=== PATIENT | male | born 1965 | race African-American/Black ===

== ENCOUNTER 2020-10-09 07:59 | Inpatient (IN) | payer OTHER, SELFPAY ==
[2020-10-09] VITALS (10 sets, daily range): BP systolic 101–120; BP diastolic 64–80; PULSE 70–95; RESP 14–24; TEMP 36.6–37.2; O2SAT 97–99; BMI 24.2
--- NOTE | ~2020-10-09 | CT_ITS ---
EXAMINATION: CT cervical spine wo con EXAM DATE: 10/09/2020 22:53 INDICATION: Neck pain following seizure. TECHNIQUE: Spiral CT of the cervical spine was performed without contrast. Axial images were reviewe d. Coronal and sagittal reformatted images were also reviewed. The dose-length product (DLP) for thi s examination was 422.85 mGy-cm. The exposure was tailored according to patient size (auto mA exposu re control), and iterative reconstruction (ASIR) was used as additional dose reduction technique. ere is no prior study for comparison. FINDINGS: There is no evidence of acute cervical fracture. The odontoid process is intact. Pre-dens space is normal. Prevertebral soft tissue is normal. There are no soft tissue abnormalities identi fied. There is no disc space widening or traumatic vertebral body subluxation suspected. Mild to mo derate cervical spondylosis. A detailed level by level evaluation of spondylosis can be added as add endum if requested. IMPRESSION: 1. No acute cervical fracture. Reviewed, dictated and finalized at location A. NAILER
--- NOTE | ~2020-10-09 | CT_ITS ---
EXAMINATION: CT brain wo con DATE: 10/09/2020 08:59 INDICATION: Possible seizure. Altered mental status. TECHNIQUE: Computed tomography (CT) of the head was performed without intravenous contrast. The mA wa s adjusted according to patient size. Iterative reconstruction technique was employed. Exam dose: 60 5.33 mGy-cm total exam DLP. COMPARISON: 04/24/2019 CT brain FINDINGS: No intracranial mass lesion or hemorrhage or cerebrovascular accident. No midline shift or mass effect. Normal ventricular size. No subdural or epidural hematoma. No fracture or bone destruction of the cranial vault. Included mastoid air cells and paranasal sinuses are normally developed and aerated. IMPRESSION: Negative Reviewed, dictated and finalized at Location A. Reviewed, dictated and finalized at location A. TRANSFER WORKER IMPRESSION: Negative
--- NOTE | ~2020-10-09 | US_ITS ---
EXAMINATION: US carotid duplex BI DATE: 10/10/2020 11:21 INDICATION: Seizure TECHNIQUE: Grayscale, color Doppler, and pulsed Doppler images of the cervical carotid arteries were obtained. The degree of vessel stenosis is placed in one of the following categories: normal, <50%, 5 0-69%, >=70% but less than near-occlusion, near-occlusion, or total occlusion. Note that percent sten osis relative to normal distal artery lumen diameter is indirectly measured from velocity measurement s as described by Benson, et al. Radiology 2003; 229:340-346. Notes: Normal: Peak systolic velocity <125 centimeters/sec and no plaque <50%. Peak systolic velocity <125 ( EDV <40; ICA/CCA PSV ratio <2.0; used these factors only a tandem lesions or low cardiac output or co ntralateral disease) 50-69 %: PSV 125-230 (EDV 40-100; ratio 2-4) >= 70% but less than near occlusion: PSV greater than 230 (EDV > 100; ratio> 4.0) Near Occlusion: PSV that is variable; markedly narrowed lumen Occlusion: Absent flow on color/spectral Doppler and no lumen on mancilla scale. COMPARISON: None. FINDINGS: RIGHT: The right common carotid artery (CCA) peak systolic velocity (PSV) is 87 cm/s. The right internal car otid artery (ICA) PSV is 89 cm/s. The right ICA end-diastolic velocity (EDV) is 37 cm/s. The right IC A/CCA PSV ratio is 1.0. The external carotid artery (ECA) PSV is 92 cm/s. There is antegrade flow in the right vertebral artery. LEFT: The left CCA PSV is 120 cm/s. The left ICA PSV is 82 cm/s. The left ICA EDV is 35 cm/s. The left ICA/ CCA PSV ratio is 0.7. The ECA PSV is 65 cm/s. There is antegrade flow in the left vertebral artery. IMPRESSION: 1. Less than 50% stenosis in the right internal carotid artery by sonographic criteria. 2. Less than 50% stenosis in the left internal carotid artery by sonographic criteria. Reviewed, dictated and finalized at location B. ASSISTANT IMPRESSION: 1. Less than 50% stenosis in the right internal carotid artery by sonographic satish alejo. 2. Less than 50% stenosis in the left internal carotid artery by sonographic hansa miranda.
--- NOTE | ~2020-10-09 | XR_ITS ---
EXAMINATION: XR chest 2V DATE: 10/09/2020 15:25 INDICATION: Chest pain. TECHNIQUE: Frontal and lateral views of the chest were obtained. COMPARISON: Chest single view 03/18/2019, chest CT 04/24/2019 FINDINGS: There are airspace opacities in left lower lobe. No pleural effusion or pneumothorax. The h eart size is normal. IMPRESSION: 1. Airspace opacities in left lower lobe, consistent with atelectasis versus pneumonia. Reviewed, dictated and finalized at location A. ATION MARBLE MECHANIC IMPRESSION: 1. Airspace opacities in left lower lobe, consistent with atelectasis versus pn eumonia.
--- NOTE | ~2020-10-09 | CT_ITS ---
EXAMINATION: CTA BRAIN/CAROTID DATE: 10/10/2020 20:22 INDICATION: Seizures TECHNIQUE: Computed tomographic angiography (CTA) of the head and neck was performed with 100 mL Omni paque-350 intravenous contrast. Multiplanar reconstructions and maximum intensity projection 3D-recon structions of the carotid arteries and of the intracranial arteries were created by the technologist on a separate workstation. Automated exposure control and iterative reconstruction technique were emp loyed.The dose-length product was 1260.37 mGy-cm. COMPARISON: Head CT and brain MR dated 10/09/2020 FINDINGS: Carotid arteries: There is 0% stenosis of the right carotid bulb relative to normal distal artery lumen diameter (NASCE T criteria). There is 0% stenosis of the left carotid bulb relative to normal distal artery lumen vandana meter. Cervical soft tissues are unremarkable. Mild cervical spondylosis. Linear discoid atelectasis in the superior segment of the left lower lobe. There are groundglass opacities in the dependent aspe ct of the left upper lobe and superior segment of the left lower lobe and favor additional atelectasi s over pneumonia. Intracranial arteries There is no hemodynamically significant stenosis in the vertebral, basilar and internal carotid arter ies. Vertebral arteries are codominant. There are no aneurysms identified. Both A1 and P1 segments a re patent. There are also a patent anterior communicating artery and bilateral posterior commuting ar teries. Cerebral arterial arborization appears symmetric. IMPRESSION: 1. 0% stenosis of the left and right carotid bulbs relative to normal distal artery lumen diameter (N ASCET criteria). 2. Normal cerebral angiogram. Reviewed, dictated and finalized at location A. ET LABOR UNION IMPRESSION: 1. 0% stenosis of the left and right carotid bulbs relative to normal distal ar theo lumen diameter (NASCET criteria). 2. Normal cerebral angiogram.
--- NOTE | ~2020-10-09 | MR_ITS ---
EXAMINATION: MR brain/brain stem wo/w con DATE: 10/09/2020 15:21 INDICATION: Seizure. Neurofibromatosis. TECHNIQUE: Magnetic resonance imaging (MRI) of the brain and brainstem was performed without and with 15 mL MultiHance intravenous contrast. Sequences included sagittal and axial T1-weighted FSE, axial diffusion-weighted FS EPI, axial T2*-weighted GRE, axial T2-weighted FLAIR Propeller, and axial T2-we ighted Propeller. Postcontrast sequences included axial, sagittal, and coronal T1-weighted FSE. Appar ent diffusion coefficient (ADC) maps were created. COMPARISON: Head CT 10/09/2020 FINDINGS: There is no intracranial hemorrhage, acute infarction, or abnormal intracranial mass lesion . The ventricles are normal in size. The orbits are normal. The paranasal sinuses are clear. The mast oid air cells are normal. IMPRESSION: 1. Normal brain. Reviewed, dictated and finalized at location A. [facility] IMPRESSION: 1. Normal brain.
--- NOTE | 2020-10-09 08:04 | ECG_ITS ---
Measurements Intervals [place] Rate: 89 P: 61 FL: 147 QRS: 58 QRSD: 88 T: 66 QT: 362 QTc: 443 Interpretive Statements SINUS RHYTHM EARLY PRECORDIAL R/S TRANSITION ST ELEVATION IN DIFFUSE LEADS- CONSIDER PERICARDITIS OR EARLY REPOLARIZATION ABNORMAL ECG Electronically Signed On 10-09-2020 9:23:51 DOWEL STICKER OPERATOR by Raymond Quezada D.O.
--- NOTE | 2020-10-09 08:08 | ED.AMS ---
HPI - Altered Mental Status General Chief Complaint: Seizure Stated Complaint: Altered Mental, Seizure Time Seen by Provider: 10/09/20 08:06 History of Present Illness HPI narrative: 55 yo male with unknown medical history brought to the ED by EMS for altered mental status. reportedly awoke next to him shaking. She tried to wake him up, but he did not respond. When he did wake up he was confused and combative. Per EMS no h/o seizures, drugs, alcohol. VS stable. On arrival to the ED he is able to tell us his name, but not providing any additional history. History limited by mental status. Related Data Home Medications Medication Instructions Recorded Confirmed aspirin [Adult Low Dose Aspirin] 81 mg PO DAILY 10/09/20 10/09/20 levothyroxine 125 mcg PO DAILY 10/09/20 10/09/20 Allergies Allergy/AdvReac Type Severity Reaction Status Date / Time Penicillins AdvReac Intermediate Rash Verified 10/09/20 12:54 Review of Systems Review of Systems: ROS unobtainable: Yes unobtainable due to mental status PMFSH Past Medical History Medical History (Updated 10/09/20 @ 17:58 by Benson Lewis MD) CAD (coronary artery disease) Hx of [place] when 39yo Hypothyroidism Neurofibromatosis Rheumatic fever with murmur Surgical History Surgical History (Updated 10/09/20 @ 13:33 by Benjamín Alfaro MD) History of dental surgery Hx of appendectomy Family History Family History (Updated 10/09/20 @ 13:33 by Benjamín Alfaro MD) Mother Heart disease Sibling Heart disease Social History Social History (Updated 10/09/20 @ 13:34 by Benjamín Alfaro MD) Social History: Patient lives at home with his . He has 4 children who live outside the home. No pets. Drinks 1 alcoholic drink every 2-3 weeks. No tobacco use. Lifelong nonsmoker. No history of drug use. He is a full code. He nominates his to be the individual would make medical decisions for him if he is not able. Smoking status: Never smoker Alcohol intake: never Substance use: never Gender identity (if verbalized by the patient): Male Spiritual care concerns: No Comments History unontainable Exam Const: General: alert and confusion Nutritional Appearance: well nourished Other: Oriented to self HENMT: Head: normal to inspection Eyes: Other: Pupils 2 mm and sluggish Neck: Neck: normal visual inspection Chest: Chest palpation & inspection: normal inspection of the chest Resp: Effort & Inspection: normal respiratory effort Auscultation: clear to auscultation bilaterally Cardio: Rate: regular rate Rhythm: regular rhythm GI: GI Palp: Yes Soft to palpation and No Tenderness to palpation present (GI) Skin: General skin exam: normal color Neuro: General: moves all extremities Other: Grossly normal strength. Repetitive. Not following commands or answering questions consistently. Extrem: Other: lymphadenopathy of all extremities. Course Vital Signs Vital signs: Vital Signs Pulse Rate 95 10/09/20 08:10 Temperature 36.8 C 10/09/20 15:33 Pulse Rate 70 10/09/20 16:56 Respiratory Rate 14 10/09/20 15:33 Blood Pressure 101/68 10/09/20 15:33 Pulse Oximetry 98 10/09/20 14:00 MDM - Altered Mental Status Differential Diagnosis Differential diagnosis: Likely alcoholic intoxication, hypoglycemia, subarachnoid hemorrhage, sepsis and other (cancer, infection) Medical Records Attestation: I reviewed the patient's medical records. Lab Data Attestation: I reviewed the patient's lab results. Result diagrams: 10/09/20 08:32 10/09/20 08:32 Labs: Lab Results 10/09/20 10/09/20 10/09/20 Range/Units 08:15 08:15 08:32 WBC 8.9 (4.5-10.0) K/mm3 RBC 4.37 L (4.6-6.20) M/mm3 Hgb 14.0 (14.0-18.0) g/dL Hct 40.5 L (42.0-52.0) % MCV 92.7 (80-100) fl MCH 32.0 (26-34) pg MCHC 34.6 (32-36) g/dl RDW 10.8 L (11.5-14.5) % Plt Count 181
[2020-10-09] MEDS: SODIUM CHLORIDE 0.9% IV 1,000 ML 999 ML IV CONT (08:13)
[2020-10-09 08:32] LABS: Alveolar/Arterial O2 Gradient 31.6 mmHg; Fractional Inspired Oxygen 21 %; HCO3 ABG 21.3 mEq/l (22.0-26.0); Oxygen Content ABG 19.4 %vol (16.0-22.0); Oxygen Saturation ABG 93.5 % (95.0-100.0); Oxyhemoglobin 92.4 % THb (90.0-100.0); PCO2 ABG 39.7 mmHg (35.0-45.0); PO2 ABG 70.6 mmHg (80.0-100.0); PO2 FiO2 Ratio Arterial Blood 3.36 %; Total Hemoglobin 14.9 g/dL (12.0-18.0); pH ABG 7.347 (7.350-7.450)
[2020-10-09 08:33] LABS: Device ROOM AIR; Site Drawn LEFT BRACHIAL
[2020-10-09 09:06] LABS: Basophils Absolute Auto 0.1 K/mm3 (0.0-0.1); Basophils Percent Auto 0.6 % (0.2-1.2); Eosinophils Absolute Auto 0.1 K/mm3 (0-0.3); Eosinophils Percent Auto 1.1 % (0-4.4); Hematocrit 40.5 % (42.0-52.0); Immature Granulocyte Percent A 1.1 % (0-0.5); Lymphocytes Absolute Auto 1.66 K/mm3 (0.9-3.2); Lymphocytes Percent Auto 18.6 % (18.3-44.2); Mean Corpuscular HGB Conc 34.6 g/dl (32-36); Mean Corpuscular Volume 92.7 fl (80-100); Monocytes Absolute Auto 0.4 K/mm3 (0.1-0.6); Monocytes Percent Auto 4.2 % (2.6-8.5); Neutrophils Absolute Auto 6.6 K/mm3 (1.3-6.7); Neutrophils Percent Auto 74.4 % (45.5-73.1); Platelet Count Result 181 k/mm3 (150-375); Red Blood Count 4.37 M/mm3 (4.6-6.20); Red Cell Distribution Width 10.8 % (11.5-14.5); White Blood Count 8.9 K/mm3 (4.5-10.0)
[2020-10-09 09:15] LABS: Add Urine Microscopic? YES; Appearance Urine Clear (Clear); Bilirubin Urine Negative (Negative); Blood Urine 2+ (Negative); Color Urine Yellow (Yellow); Glucose Urine UA Negative (Negative); Ketones Urine Negative (Negative); Leukocyte Esterase Ur Negative LEU/UL (Negative); Mucus Urine Rare /lpf; Nitrate Urine Negative (Negative); Protein Urine 2+ mg/dL (Negative); RBC Urine 21-50 /hpf (0-2); Specific Grav Ur 1.014 (1.001-1.035); Urobilinogen Urine Negative mg/dL (<2.0); WBC Urine 0-3 /hpf
[2020-10-09 09:17] LABS: INR 0.9; Prothrombin Time 12.6 Seconds (11.1-14.7)
[2020-10-09 09:18] LABS: Alanine Aminotransferase 20 U/L (4-50); Albumin Level 3.9 g/dL (3.5-5.1); Alkaline Phosphatase 52 U/L (38-126); Anion Gap 13 mmol/L (8-16); Aspartate Amino Transferase 21 U/L (17-59); Bilirubin,Total 1.2 mg/dL (0.2-1.3); Blood Urea Nitrogen 10 mg/dL (9-20); Calcium 9.1 mg/dL (8.4-10.2); Carbon Dioxide 22 mmol/L (22-30); Chloride 103 mmol/L (98-107); Estimated CRCL calculation 63 ml/min; Estimated Glomerular Filt Rate > 60; Ethanol < 10 mg/dL (<10); Glucose 140 mg/dL (75-110); Partial Thromboplastin Time 20.9 SECONDS (22.3-36.8); Potassium 3.9 mmol/L (3.4-5.0); Sodium 138 mmol/L (137-145)
[2020-10-09 09:25] LABS: Lactic Acid Reflex 6.7 mmol/L (0.7-2.1)
[2020-10-09 09:30] LABS: Troponin I < 0.012 ng/mL (0.000-0.034)
[2020-10-09 09:51] LABS: Amphetamine Screen Urine Negative (Negative); Barbiturate Screen Urine Negative (Negative); Benzodiazepines Screen Urine Negative (Negative); Cannabinoid Screen Urine Negative (Negative); Cocaine Screen Urine Negative (Negative); Methadone Screen Urine Negative (Negative); Opiate Screen Urine Negative (Negative); Phencyclidine Screen Urine Negative (Negative)
[2020-10-09] MEDS: ACETAMINOPHEN 500 MG TABLET 1000 MG PO (09:53)
[2020-10-09] MEDS: levETIRAcetam 1000MG/NACL100ML 1,000 MG/100 ML BAG 400 MG IVPB (09:59)
[2020-10-09 10:19] LABS: Ammonia 37 umol/L (9-30)
--- NOTE | 2020-10-09 12:00 | ADMGEN ---
This patient, Wai Ramírez, was admitted to Medical Room 254-01. Patient/family oriented to hospital policies and general routines including ID bracelet, bed and alarms, visiting hours, pain management, procedures, bathroom and other care routines, personal items, smoking policy, room service/diet, and visiting hours. Information on how to activate the Rapid Response Team has been discussed. Patient/Family are encouraged to report perceived risks to care and to ask questions if they do not understand what they are told or what they should do.
[2020-10-09 12:04] LABS: Reflex Lactic Acid Yes or No Add Lactic
[2020-10-09] MEDS: LACTATED RINGERS 1,000 ML 125 ML IV CONT ×2 (12:14→20:45)
--- NOTE | 2020-10-09 13:01 | PM.IMHP ---
H&P: HPI History of Present Illness Date/Time: THIS PATIENT IS PLACED IN OBSERVATION 10/09/20 13:01 Chief complaint: Seizure Narrative: Wai Ramírez is a 55 year old male with CAD and neurofibromatosis here for seizure like activity. The patient has no memory of the events leading up to this admission; his hx is supported by notes in the chart and talking with his . He denies excessive alcohol use. No drug use. No hx of seizures. No new medications including using OTC medications. No recent travel. Uses city water. No fever but feels chilled today. Also having a sore throat and cough today that is new. Cough is nonproductive. No PND or rhinorrhea. No hx of migraines or chronic headaches. About 3 days ago, he had an episode of chest pain while walking to his car. He stated it lasted 15 minutes and it felt like 'pressure' and it 'hurt like hell'. He denies that it was sore to touch or pleuritic. He did not seek medical car but drove himself home. Pain resolved when in the driveway and did not recur when he walked into the house. No radiation/n/v/diaphoresis. Mild SOB associated with the pain. Has hx of [place] at 39yo with C but no stents. States last stress test >5yrs ago but states patient at [facility] 8 months ago for chest pain and blurry vision. He and his are unclear if a stress test was done. 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 Also about 3 days ago (and at a different time then the chest pain), he had acute onset blurry vision in the left eye sever enough for him to have to pull ove. He rubbed the eye until vision improved. No diplopia or eye pain.No chronic eye problems like cataracts or glaucoma. Sx lasted 5-7 minutes. He has been having tingling in his left medial 3 fingers at the time but no weakness or slurred speech. He had the tingling again yesterday and feels numb now. No depression or anxiety issues. He is lactose intolerant and had diarrhea 3 days ago but this has resolved. No nausea, vomiting, constipation, abd pain, dyuria, hematuria, melana or hematochezia. His son had COVID 1 month ago but otherwise no exposure to COVID that he is aware of. This morning. his awoke next to him with the patient 'twitching' like 'he was having a bad dream'. She tried to wake him but he then began to have snoring respirations. EMS was contacted and patient brought to the ED. In the ED, patient was hemodynamically stable. When he did wake up, he became confused and combative. CT brain showing no acute findings. EKG showing diffuse ST elevation. No old EKGs to compare. Patient admitted for further care. Called by RN after seeing patient. She states marielle confided in her that after the chest pain episode (detailed above), he went back out to the garage, closed all the doors and turned on the car. He eventually decided to stop the car and come back into the house since the smell got to him. Marielle is high risk from the [place] risk assessment. Review of Systems Review of Systems: All systems reviewed & are unremarkable except as noted in HPI and below PMFSH Past Medical History Medical History CAD (coronary artery disease) Hx of [place] when 39yo Hypothyroidism Neurofibromatosis Rheumatic fever with murmur Surgical History Surgical History History of dental surgery Hx of appendectomy Family History Family History Mother Heart disease Sibling Heart disease Social History Social History Social History: Patient lives at home with his . He has 4 children who live outside the home. No pets. Drinks 1 alcoholic drink every 2-3 weeks. No tobacco use. Lifelong nonsmoker. No history of drug use. He is a full code. He nominates his to be th
[2020-10-09 14:42] LABS: Lactic Acid 2.9 mmol/L (0.7-2.1)
[2020-10-09 14:50] LABS: Hemoglobin A1C 4.6 % (<5.7)
[2020-10-09 14:54] LABS: Troponin I < 0.012 ng/mL (0.000-0.034)
[2020-10-09 15:38] LABS: Thyroid Stimulating Hormone Reflex 0.096 uIU/mL (0.465-4.68)
--- NOTE | 2020-10-09 16:00 | PC.NURSE ---
Per MD, patient may keep cell phone and use Kpad.
[2020-10-09] MEDS: ACETAMINOPHEN 325 MG TABLET 650 MG PO (16:21)
[2020-10-09 17:00] LABS: Free T4 Free Thyroxine Reflex 1.53 ng/dL (0.78-2.19)
[2020-10-09 17:02] LABS: Glucose Point of Care 118 (65-105)
[2020-10-09 18:06] LABS: Total Triiodothyronine (T3) 1.07 NG/ML (0.97-1.69)
[2020-10-09 22:55] LABS: Glucose Point of Care 108 (65-105)
[2020-10-09] MEDS: HYDROcodone/acetaminophen (*CRX) 5-325 MG TABLET 1 TAB PO (22:59)
[2020-10-10] VITALS (9 sets, daily range): BP systolic 100–118; BP diastolic 65–74; PULSE 68–86; RESP 16–20; TEMP 36.6–36.8; O2SAT 98–100
--- NOTE | 2020-10-10 | ECHO_ITS ---
Patient Info Name: Wai Ramírez Age: 55 years : 1965 Gender: Male Ht: 70 in Wt: 168 lbs BSA: 1.95 m2 HR: 70 bpm BP: 102 / 65 mmHg Heart Rhythm: Sinus Rhythm Technical Quality: Good Exam Date: 10/10/2020 10:10 AM Exam Location: [facility] Patient Status: Inpatient Admit Date: 10/10/2020 Staff Ordering Physician: Benjamín Alfaro MD Plant Controls Specialist: Javier Olsen, ELVA, RT Attending Provider: Benjamín Alfaro MD Exam Type: CA echo doppler color flow Study Info Indications R07.9 - Chest pain, unspecified Complete two-dimensional, color flow and Doppler transthoracic echocardiogram is performed. Summary 1. Left ventricular systolic function is normal, estimated at 55-60%. 2. There is mildly increased left ventricular wall thickness. 3. The left ventricular diastolic function is abnormal. Incomplete evaluation. 4. There is trace tricuspid valve regurgitation. 5. Unable to estimate PA systolic pressure due to poor spectral resolution of tricuspid regurgitant jet velocity. 6. There is moderate mitral valve regurgitation. Left Ventricle Left ventricular chamber dimension is normal. Left ventricular systolic function is normal, estimated at 55-60%. There is mildly increased left ventricular wall thickness. Left ventricular septal wall motion is normal. The left ventricular diastolic function is abnormal. Incomplete evaluation. Global longitudinal strain is normal at -18 %. Right Ventricle Right ventricular chamber dimension is normal. Right ventricular systolic function is normal. Left Atria Left atrial chamber dimension is normal. Right Atria Right atrial chamber dimension is normal. Aortic Valve The aortic valve is not well visualized. There is no aortic valve stenosis. There is trace aortic valve regurgitation. Pulmonic Valve The pulmonic valve is not well visualized. Mitral Valve The mitral valve has thickened leaflets. There is moderate mitral valve regurgitation. The mitral valve annulus is mildly calcified. Tricuspid Valve The tricuspid valve leaflets are normal. There is trace tricuspid valve regurgitation. Unable to estimate PA systolic pressure due to poor spectral resolution of tricuspid regurgitant jet velocity. Pericardium/Pleural The pericardium appears normal. There is no pericardial effusion. Inferior Vena Cava Normal inferior vena cava with >50% collapse upon inspiration consistent with normal right atrial pressure, 5 mmHg. Aorta The aortic root size at the sinus of Valsalva is normal. There is mild aortic atherosclerosis. Left Ventricular Outflow Tract Name Value Normal LVOT 2D LVOT Diameter 2.2 cm LVOT Doppler LVOT Peak Gradient 4 mmHg LVOT Mean Gradient 2 mmHg LVOT VTI 17 cm LVOT VTI/AV VTI Ratio 0.8 LVOT Stroke Volume 66 ml LVOT CO 4.4 l/min LVOT CI 2.2 l/min/m2 Mitral Valve
[2020-10-10 05:45] LABS: Alanine Aminotransferase 14 U/L (4-50); Albumin Level 3.3 g/dL (3.5-5.1); Alkaline Phosphatase 44 U/L (38-126); Anion Gap 5 mmol/L (8-16); Aspartate Amino Transferase 17 U/L (17-59); Bilirubin,Total 1.8 mg/dL (0.2-1.3); Blood Urea Nitrogen 11 mg/dL (9-20); Calcium 8.8 mg/dL (8.4-10.2); Carbon Dioxide 27 mmol/L (22-30); Chloride 104 mmol/L (98-107); Cholesterol 146 mg/dL (0-200); Estimated CRCL calculation 75 ml/min; Estimated Glomerular Filt Rate > 60; Glucose 107 mg/dL (75-110); HDL Direct 35 mg/dL; Potassium 4.3 mmol/L (3.4-5.0); Sodium 136 mmol/L (137-145); Triglycerides 107 mg/dL (<150)
[2020-10-10 05:56] LABS: LDL Cholesterol Direct 87 mg/dL
[2020-10-10] MEDS: LEVOTHYROXINE SODIUM 125 MCG TABLET PO (06:40)
[2020-10-10] MEDS: LACTATED RINGERS 1,000 ML 125 ML IV CONT ×2 (06:40→14:40)
[2020-10-10 08:34] LABS: Glucose Point of Care 104 (65-105)
[2020-10-10 08:59] LABS: Ammonia 31 umol/L (9-30)
--- NOTE | 2020-10-10 10:23 | WPDNEURCNPN ---
Assessment and Plan Assessment and plan (1) Epileptic seizure: Code(s): G40.909 - Epilepsy, unspecified, not intractable, without status epilepticus Status: Acute (2) Neurofibromatosis: Code(s): Q85.00 - Neurofibromatosis, unspecified Status: Acute Additional Plan with history of neurofibromatosis the seizure could very well be related to that in addition to the possibility of TIA I will prefer to obtain the CTA will look at the large and medium size vessels because of the neurofibromatosis Consult date: 10/10/20 Time Seen: 10:15 HPI: Wai Ramírez is a 55 year old male has been admitted to the hospital for the complaints of seizure like activity in addition to the ongoing history of 1. Coronary artery disease 2. Neurofibromatosis 3. With no history of excessive alcohol abuse or drugs or previous seizure 4. History of rheumatic fever. As per the information available he did complain of sore throat and cough which was nonproductive. History of chest pain about 3 days ago which lasted for about 15 minutes though he did not seek any medical advice he does have a history of MRI about 40 years ago in addition to stress test more than 5 years ago his lactose intolerant with no history of exposure to COVID evaluation up until known documented normal CBC total bilirubin of 1.8 with serum ammonia level 31 and pending serology. Negative MRI of the brain negative chest x-ray and negative CT scan of the cervical spine Review of Systems Review of Systems: All systems reviewed & are unremarkable except as noted in HPI and below PMFSH Past Medical History Medical History CAD (coronary artery disease) Hx of [place] when 39yo Hypothyroidism Neurofibromatosis Rheumatic fever with murmur Surgical History Surgical History History of dental surgery Hx of appendectomy Family History Family History Mother Heart disease Sibling Heart disease Social History Social History Social History: Patient lives at home with his . He has 4 children who live outside the home. No pets. Drinks 1 alcoholic drink every 2-3 weeks. No tobacco use. Lifelong nonsmoker. No history of drug use. He is a full code. He nominates his to be the individual would make medical decisions for him if he is not able. Smoking status: Never smoker Alcohol intake: never Substance use: never Gender identity (if verbalized by the patient): Male Spiritual care concerns: No Meds Home Medications and Allergies Home Medications Medication Instructions Recorded Confirmed Type aspirin [Adult Low Dose Aspirin] 81 mg PO DAILY 10/09/20 10/09/20 History levothyroxine 125 mcg PO DAILY 10/09/20 10/09/20 History Allergies Allergy/AdvReac Type Severity Reaction Status Date / Time Penicillins AdvReac Intermediate Rash Verified 10/09/20 12:54 Vital Signs Vital Signs - 24 hr 10/09/20 12:00 10/09/20 12:21 10/09/20 14:00 Temperature 36.7 C 36.8 C Pulse Rate 84 86 73 Respiratory Rate 16 14 Blood Pressure 120/71 101/68 Pulse Oximetry 98 98 10/09/20 15:33 10/09/20 16:56 10/09/20 20:00 Temperature 36.8 C Pulse Rate 73 70 81 Respiratory Rate 14 Blood Pressure 101/68 Pulse Oximetry 10/09/20 22:00 10/10/20 00:00 10/10/20 04:00 Temperature 37.2 C Pulse Rate 80 73 86 Respiratory Rate 24 H Blood Pressure 104/64 Pulse Oximetry 97 10/10/20 05:30 Temperature 36.8 C Pulse Rate 68 Respiratory Rate 16 Blood Pressure 102/65 Pulse Oximetry 98 Exam Narrative: Exam Narrative: examination revealed him to be awake alert cooperative in no obvious acute distress. Head normocephalic with no cranial bruit ear nose throat examination normal with moist mucous membranes no rhinorrhea neck is supple
[2020-10-10] MEDS: ASPIRIN 81 MG CHEWABLE TABLET PO (10:55)
[2020-10-10] MEDS: ENOXAPARIN 40 MG/0.4 ML SYRINGE SUB-Q (10:55)
[2020-10-10] MEDS: ACETAMINOPHEN 325 MG TABLET 650 MG PO (14:39)
--- NOTE | 2020-10-10 19:41 | PM.DS ---
DS: Admitting Diagnosis Admitting Diagnosis Admitting Diagnosis: Seizure DS: Discharge Diagnosis Discharge Diagnosis (1) Seizure-like activity: Code(s): R56.9 - Unspecified convulsions Status: Acute Assessment and Plan: Patient had episode of seizure-like activity while sleeping. He does have neurofibromatosis which could be the etiology. No history of seizures. No other risk factors. He is having other neurologic symptoms such as numbness and tingling in the left hand and blurry vision in the left eye but some of this also appears to be chronic with negative workup in the past. Consider TIA. We continued aspirin. Brain MRI was normal. Carotid Dopplers were normal. Echocardiogram showing EF 55-60% with diastolic dysfunction and Moderate MR (he has hx of rheumatic fever). Neurology consulted. Old records from [facility] ordered but none forth coming. CTA of the carotids and brain was normal. Discussed with neurology who recommended starting Keppra. Pateint educated about the need to NOT drive or operate heavy machinery or any other activity that could cause harm if her were to have another seizure. (2) Suicidal behavior with attempted self-injury: Code(s): T14.91XA - Suicide attempt, initial encounter Status: Acute Assessment and Plan: Patient denied to me that he was feeling depressed but later spoke to the nurse explaining that he had a suicide attempt that he aborted himself. Suicide precautions ordered. He was seen by Crisis who felt pateint could be discharged home safely with safety contract. aware of this issue. (3) Chest pain: Code(s): R07.9 - Chest pain, unspecified Status: Acute Assessment and Plan: Patient had chest pain a few days ago. He has a history of coronary disease. He is only on aspirin therapy. Unclear if he had a stress test 8 months ago; no old records sent. EKG reviewed is more consistent with pericarditis or repolarization than ischemia. Troponin negative. Echo as mentioned above. CXR showing LLL airspace disease which could be developing PNA given his chest pain and new cough. WBC normal and no fevers. We did start Levaquin. Will need followup CXR in 4 weeks to ensure this clears. Telemetry did not showing any concerning findings. LDL 87. Patient to follow up with his doctor for further testing. He is to return to the ER if having recurrent chest pain. (4) Hypothyroidism: Code(s): E03.9 - Hypothyroidism, unspecified Status: Acute Assessment and Plan: TSH low at 0.096 but FT4 1.53. We continued his Synthroid. (5) CAD (coronary artery disease): Code(s): I25.10 - Atherosclerotic heart disease of [place] coronary artery without angina pectoris Status: Acute Assessment and Plan: As above. We continued aspirin. (6) Neurofibromatosis: Code(s): Q85.00 - Neurofibromatosis, unspecified Status: Acute Assessment and Plan: Patient has a history of neurofibromatosis. No history of seizures however. As above DS: Summary Hospital Course Reason for hospitalization: 55yo male brought to ED after having seizure like activity. Please see H&P for details Hospital Course: As above Status at Discharge Cognitive/behavioral status at discharge: PATIENT IS STABLE FOR DISCHARGE Time Spent with Patient Time attestation: Total time spent providing and/or coordinating discharge services: 40 minutes Time spent: Greater than 30 minutes Specific discharge activities: Patient education Exam Narrative: Exam Narrative: AF 97.9 100/67 78 20 100% ra Gen - NARD Chest - CTA bilaterally, nml RR CV - RRR S1/S2; Tele showing no alarms Abd - soft, NT/ND, +BS Ext - no cedema. Neuro - nonfocal Psych - normal mood and affect. Skin - warm and dry. DS: Data Data Completed and Pending Labs on day of discharge: Labs from last 24 hours 10/10/20 10/10/2009/13
[2020-10-10] MEDS: levETIRAcetam 500 MG TABLET PO (21:26)
== END 2020-10-10 22:00 | disposition home or self-care (01) | DRG 101 ==
LOC: ANHED 08:59 → ANH2MED 10:36
PROVIDERS: Admitting Provider Internal Medicine; Emergency Provider Emergency Medicine; PCP Internal Medicine; Visit Provider Internal Medicine
DX: R56.9 Unspecified convulsions (principal); I25.10 Atherosclerotic heart disease of native coronary artery without angina pectoris; E03.9 Hypothyroidism, unspecified; T14.91XA Suicide attempt, initial encounter; Q85.00 Neurofibromatosis, unspecified; I25.2 Old myocardial infarction
CPT/HCPCS: 36415; 36600; 70450; 70496; 70498; 70553; 71046; 72125; 80053; 80061; 80307; 81001; 82140; 82805; 83036; 83605; 84439; 84443; 84480; 84484; 85025; 85610; 85730; 93005; 93306; 93880; 96360; 96361; 96365; 96375; 99285; A9270; A9577; G0378; J1650; J1953; J1956; J7030; J7120; Q9967

== ENCOUNTER 2020-10-24 08:30 | Outpatient (CLI) | payer OTHER, SELFPAY ==
--- NOTE | 2020-10-26 10:04 | WPDNEUROLOGY ---
Neurology EEG Report General Information Date of Study: 10/24/20 TEST eeg DIAGNOSIS Seizures CONDITION OF RECORDING awake drowsy and sleep EEG NUMBER [id number] CLINICAL HISTORY patient reported 2 weeks ago he had a seizure in his sleep. [place] fine when he went to bed then woke up here in the emergency room. Also sees his left arm has been numb the seizure. No previous history or family history of seizures EEG DESCRIPTION the whole record consists of low-voltage 15 to 18 hertz per 2nd beta activity during drowsiness with bilateral symmetrical sleep spindles during sleep. Hyperventilation not done photic stimulation produced normal drive. Non paroxysmal. Nonfocal. Nonlateralizing. IMPRESSION Normal record during drowsiness and sleep
== END 2020-10-24 08:31 | disposition home or self-care (01) ==
PROVIDERS: PCP Internal Medicine; Visit Provider Psychiatry & Neurology Neurology
DX: R56.9 Unspecified convulsions (principal)
CPT/HCPCS: 95816

== ENCOUNTER 2024-12-03 17:56 | Inpatient (IN) | payer OTHER, SELFPAY ==
--- NOTE | ~2024-12-03 | XR_ITS ---
CHEST RADIOGRAPH CLINICAL HISTORY: CP . COMPARISON: 10/09/2020 TECHNIQUE: Single portable view of the chest. FINDINGS The cardiomediastinal silhouette is unremarkable. The lungs are clear. Visualized osseous structures and soft tissues are unremarkable. IMPRESSION: No focal infiltrate or effusion. Reviewed, dictated and finalized at location A. [employer]
--- NOTE | ~2024-12-03 | CT_ITS ---
EXAMINATION: CTA chest PE protocol DATE: 12/03/2024 20:05 VARNISH MAKER HELPER INDICATION: Shortness of breath, back and chest pain TECHNIQUE: Computed tomographic angiography (CTA) of the chest was performed with 100 mL Omnipaque-35 0 intravenous contrast. The dose-length product was 235.43 mGy-cm. Maximum intensity projection 3D-re constructions of the aorta and other arteries were constructed by the technologist on a separate work station. COMPARISON: Reference is made to CT examination of the chest abdomen and pelvis dated 04/24/2019 FINDINGS: No filling defect is identified within the main or proximal pulmonary arteries. The main pulmonary artery is not enlarged. The thoracic aorta is nonaneurysmal, and without dissection. The lungs are clear. No acute compression fracture is identified. Prior fracture deformity is identified within the proximal sternum. The heart is borderline enlarged, without pericardial effusion. Within the upper abdomen: Redemonstration of a subcentimeter focus of decreased attenuation within segment 2 of the liver, unch anged from 2019, representing either a cyst or hemangioma. The gallbladder is only minimally distended, and otherwise unremarkable. Fecal stasis within the colon. IMPRESSION: No pulmonary embolus. No aortic dissection or aneurysmal dilatation. The lungs are clear. Reviewed, dictated and finalized at location A. IS[employer] MAKER HELPER
--- NOTE | 2024-12-03 17:57 | ECG_ITS ---
Test Date: 2024-12-03 18:15:07 Measurements Intervals [place] Rate: 66 P: -1 DE: 139 QRS: 79 QRSD: 88 T: 71 QT: 388 QTc: 409 Interpretive Statements SINUS RHYTHM EARLY REPOLARIZATION [ST ELEVATION WITH NORMALLY INFLECTED T WAVE] No previous ECG available for comparison Electronically Signed On 12-04-2024 11:52:32 SKI TOP TRIMMER by Chelsey Birmingham
[2024-12-03 18:13] VITALS: BP 131/79; PULSE 66; RESP 20; TEMP 36.7; O2SAT 100
--- NOTE | 2024-12-03 18:26 | ED_ITS ---
HPI - Chest Pain General Chief Complaint: Chest Pain <Dianne Claros APRN - Last Filed: 12/03/24 18:29> Stated Complaint: CP, SOB x1hr <Dianne Claros APRN - Last Filed: 12/03/24 18:29> Time Seen by Provider: 12/03/24 18:20 <Dianne Claros APRN - Last Filed: 12/03/24 18:29> Focused HPI: Patient is a 59-year-old male presents to the ER with complaints of chest pain that started approximately 3 hours ago. He endorses a cough for the past 2 weeks. Patient endorses shortness of breath and pain in the center of his back. He endorses a history of STEMI at age 39. Patient reports he takes an aspirin every day. He reports his father had pneumonia approximately 2 weeks ago. Patient is rating his chest pain at a 10/10. GENERAL: Ill-appearing, well-nourished, and in mild distress d/t pain. HEAD: Normocephalic, atraumatic. CHEST: Clear to auscultation. ?No respiratory distress. HEART: Regular rate and rhythm.? NEURO: ?Alert and oriented x3. Patient screened in triage and initial orders placed.? ?Additional care and disposition to be based upon?diagnostic testing and treatment. <Dianne Claros APRN - Last Filed: 12/03/24 18:29> History of Present Illness HPI narrative: 59 YEARS OLD MALE DROVE HIMSELF TO THE EMERGENCY ROOM COMPLAINING OF RETROSTERNAL CHEST PAIN GOING TO HIS BACK STARTED 3 HOURS WHILE HE IS SITTING. 8/10. ASSOCIATED WITH MILD SHORTNESS OF BREATH. PATIENT REPORT PAIN GET WORSE WITH LAYING DOWN FLAT, GET BETTER SITTING FORWARD. PATIENT DENIES ANY FEVER OR CHILLS OR NAUSEA OR VOMITING OR UPPER RESPIRATORY SYMPTOMS <Shruthi Castro MD - Last Filed: 12/03/24 19:33> Related Data Home Medications: Home Medications ?Medication ?Instructions ?Recorded ?Confirmed ?Last Taken ?Type aspirin 81 mg tablet 81 mg PO DAILY 10/09/20 10/09/20 10/07/20 06:00 History levothyroxine 125 mcg tablet 125 mcg PO DAILY 10/09/20 10/09/20 10/08/20 06:00 History <Dianne Claros APRN - Last Filed: 12/03/24 18:29> Allergies/Adverse Reactions: Allergies Allergy/AdvReac Type Severity Reaction Status Date / Time Penicillins AdvReac Intermediate Rash Verified 12/03/24 18:54 <Dianne Claros APRN - Last Filed: 12/03/24 18:29> Review of Systems 2 Review of Systems: All systems reviewed & are unremarkable except as noted in HPI and below <Shruthi Castro MD - Last Filed: 12/03/24 19:33> PMFSH Past Medical History Medical History: Medical History Rheumatic fever with murmur Hypothyroidism CAD (coronary artery disease) Hx of [place] when 39yo Neurofibromatosis <Dianne Claros APRN - Last Filed: 12/03/24 18:29> Surgical History Surgical History: Surgical History History of dental surgery Hx of appendectomy <Dianne Claros APRN - Last Filed: 12/03/24 18:29> Family History Family History: Family History Mother Heart disease Sibling Heart disease <Dianne Claros APRN - Last Filed: 12/03/24 18:29> Social History Social History: Social History Social History: Patient lives at home with his . He has 4 children who live outside the home. No pets. Drinks 1 alcoholic drink every 2-3 weeks. No tobacco use. Lifelong nonsmoker. No history of drug use. He is a full code. He nominates his to be the individual would make medical decisions for him if he is not able. Smoking status: Never smoker Alcohol intake: never Substance use: never Gender identity (if verbalized by the patient): Male Spiritual care concerns: No <Dianne Claros APRN - Last Filed: 12/03/24 18:29> Exam 2 Narrative: GENERAL APPEARANCE: WELL-DEVELOPED, WELL-NOURISHED SKIN: NORMAL COLOR HEAD: NORMOCEPHALIC, NONTRAUMATIC EYES: CLEAR CONJUNCTIVA ENT: OROPHARYNX NORMAL, EARS NORMAL, NOSE NORMAL NECK: SUPPLE, NONTENDER CHEST AND RESPIRATORY: AIRWAY PATENT, NO RESPIRATORY DISTRESS, NO ACCESSORY MUSCLE USE HEART: REGULAR RATE/RHYTHM ABDOMEN: SOFT, NONTENDER, NO ORGANOMEGALY, QUIET BOWEL SOUNDS VASCULAR: NORMAL PERIPHERAL PULSES, NORMAL CAPILLARY REFILL. MUSCULOSKELETAL: NORMAL RANGE OF MOTION, NONTENDER BACK NEUROLOGIC: ALERT AND ORIENTED ?3, CHILD CARE SITTER IS NORMAL TESTED, NO GROSS MOTOR DEFICIT <Shruthi Castro MD - Last Filed: 12/03/24 19:33> Course Consultations Consultation #1: DR. BOYER <Shruthi Castro MD - Last Filed: 12/03/24 19:33> Date: 12/03/24 <Shruthi Castro MD - Last Filed: 12/03/24 19:33> Vital Signs Vital signs: Vital Signs Temperature 36.7 C 12/03/24 18:13 Pulse Rate 66 12/03/24 18:13 Respiratory Rate 20 12/03/24 18:13 Blood Pressure 131/79 12/03/24 18:13 Pulse Oximetry 100 12/03/24 18:13 Oxygen Delivery Room Air 12/03/24 18:13 Temperature 36.7 C 12/03/24 18:13 Pulse Rate 66 12/03/24 18:13 Respiratory Rate 20 12/03/24 18:13 Blood Pressure 131/79 12/03/24 18:13 Pulse Oximetry 100 12/03/24 18:13 Oxygen Delivery Room Air 12/03/24 18:13 <Dianne Claros, ALE - Last Filed: 12/03/24 18:29> Vital Signs Temperature 36.7 C 12/03/24 18:13 Pulse Rate 66 12/03/24 18:13 Respiratory Rate 20 12/03/24 18:13 Blood Pressure 131/79 12/03/24 18:13 Pulse Oximetry 100 12/03/24 18:13 Oxygen Delivery Room Air 12/03/24 18:13 Temperature 36.7 C 12/03/24 18:13 Pulse Rate 66 12/03/24 18:13 Respiratory Rate 20 12/03/24 18:13 Blood Pressure 131/79 12/03/24 18:13 Pulse Oximetry 100 12/03/24 18:13 Oxygen Delivery Room Air 12/03/24 18:13 <Shruthi Castro MD - Last Filed: 12/03/24 19:33> MDM - Chest Pain MDM Narrative Medical decision making narrative: PATIENT PRESENTS WITH CHEST PAIN VITAL SIGNS ARE STABLE PHYSICAL EXAMINATION UNREMARKABLE EKG ON ARRIVAL SHOWED ST ELEVATION IN INFERIOR LEADS, STEMI CALLED, DR. BOYER HAVE ACCESS TO OLD EKG FOR THE PATIENT 2019 WHICH LOOKS EXACTLY THE SAME LIKE OUR EKG TODAY, EARLY REPOLARIZATION WAS HER CONCERN AT THIS TIME. THE STEMI CALL CANCELED. DIFFERENTIAL DIAGNOSIS PERICARDITIS, CHEST WALL PAIN, ANXIETY RELATED SYMPTOMS, ESOPHAGITIS, MYOCARDITIS BLOOD WORKUP TODAY INCLUDES CBC, CMP, TROPONIN, SED RATE AND CRP SHOWED NO SIGNIFICANT ABNORMALITIES LINE CHEST X-RAY SHOWED NO ACUTE ABNORMALITIES, ADMIT TO HOSPITALIST, DIAGNOSIS CHEST PAIN <Shruthi Castro MD - Last Filed: 12/03/24 19:33> Differential Diagnosis Differential diagnosis: Likely other ( ABOVE) <Shruthi Castro MD - Last Filed: 12/03/24 19:33> Medical Records Data Attestation: I reviewed the patient's medical records. <Shruthi Castro MD - Last Filed: 12/03/24 19:33> Lab Data Attestation: I reviewed the patient's lab results. <Shruthi Castro MD - Last Filed: 12/03/24 19:33> Result diagrams: 12/03/24 18:22 12/03/24 18:22 <Dianne Claros APRN - Last Filed: 12/03/24 18:29> Labs: Lab Results 12/03/24 Range/Units 18:22 WBC 7.6 (4.5-10.0) K/mm3 RBC 4.86 (4.6-6.20) M/mm3 Hgb 15.5 (14.0-18.0) g/dL Hct 47.0 (42.0-52.0) % MCV 96.7 (80-100) fl MCH 31.9 (26-34) pg MCHC 33.0 (32-36) g/dl RDW 11.3 L (11.5-14.5) % Plt Count 205 (150-375) k/mm3 MPV 10.5 H (7.4-10.4) fl Immature Gran % (Auto) 0.4 (0-0.5) % Neut % (Auto) 71.0 (45.5-73.1) % Lymph % (Auto) 18.7 (18.3-44.2) % [place] % (Auto) 7.6 (2.6-8.5) % Eos % (Auto) 1.6 (0-4.4) % Baso % (Auto) 0.7 (0.2-1.2) % Lymph # (Auto) 1.42 (0.9-3.2) K/mm3 [place] # (Auto) 0.6 (0.1-0.6) K/mm3 Eos # (Auto) 0.1 (0-0.3) K/mm3 Baso # (Auto) 0.1 (0.0-0.1) K/mm3 Abs Immat Gran (auto) 0.03 (0.00-0.031) K/mm3 Absolute Neuts (auto) 5.4 (1.3-6.7) K/mm3 Absolute Nucleated RBC 0.000 (0.0-0.012) K/mm3 Nucleated RBC % 0.0 (0.0-0.2) % ESR Pending PT 12.5 (11.1-14.7) Seconds INR 0.9 APTT 22.8 (22.3-36.8) Seconds Sodium 140 (137-145) mmol/L Potassium 4.2 (3.4-5.0) mmol/L Chloride 101 (98-107) mmol/L Carbon Dioxide 31 H (22-30) mmol/L Anion Gap 8 (4-12) mmol/L BUN 15 (9-20) mg/dL Creatinine 0.94 (0.7-1.3) mg/dL Estim Creat Clear Calc 76 ml/min Estimated GFR > 60 (59 - ) Glucose 91 (65-110) mg/dL Calcium 9.2 (8.4-10.2) mg/dL Total Bilirubin 1.1 (0.2-1.3) mg/dL AST 16 L (17-59) U/L ALT 13 (6-50) U/L Alkaline Phosphatase 67 (38-126) U/L Troponin I < 0.012 (0.000-0.034) ng/mL Total Protein 7.0 (6.3-8.2) g/dL Albumin 4.1 (3.5-5.1) g/dL Lipase 138 (23-300) U/L <Dianne Claros, BOARD LINER OPERATOR - Last Filed: 12/03/24 18:29> Lab Results 12/03/24 Range/Units 18:22 WBC 7.6 (4.5-10.0) K/mm3 RBC 4.86 (4.6-6.20) M/mm3 Hgb 15.5 (14.0-18.0) g/dL Hct 47.0 (42.0-52.0) % MCV 96.7 (80-100) fl MCH 31.9 (26-34) pg MCHC 33.0 (32-36) g/dl RDW 11.3 L (11.5-14.5) % Plt Count 205 (150-375) k/mm3 MPV 10.5 H (7.4-10.4) fl Immature Gran % (Auto) 0.4 (0-0.5) % Neut % (Auto) 71.0 (45.5-73.1) % Lymph % (Auto) 18.7 (18.3-44.2) % [place] % (Auto) 7.6 (2.6-8.5) % Eos % (Auto) 1.6 (0-4.4) % Baso % (Auto) 0.7 (0.2-1.2) % Lymph # (Auto) 1.42 (0.9-3.2) K/mm3 [place] # (Auto) 0.6 (0.1-0.6) K/mm3 Eos # (Auto) 0.1 (0-0.3) K/mm3 Baso # (Auto) 0.1 (0.0-0.1) K/mm3 Abs Immat Gran (auto) 0.03 (0.00-0.031) K/mm3 Absolute Neuts (auto) 5.4 (1.3-6.7) K/mm3 Absolute Nucleated RBC 0.000 (0.0-0.012) K/mm3 Nucleated RBC % 0.0 (0.0-0.2) % ESR Pending PT 12.5 (11.1-14.7) Seconds INR 0.9 APTT 22.8 (22.3-36.8) Seconds Sodium 140 (137-145) mmol/L Potassium 4.2 (3.4-5.0) mmol/L Chloride 101 (98-107) mmol/L Carbon Dioxide 31 H (22-30) mmol/L Anion Gap 8 (4-12) mmol/L BUN 15 (9-20) mg/dL Creatinine 0.94 (0.7-1.3) mg/dL Estim Creat Clear Calc 76 ml/min Estimated GFR > 60 (59 - ) Glucose 91 (65-110) mg/dL Calcium 9.2 (8.4-10.2) mg/dL Total Bilirubin 1.1 (0.2-1.3) mg/dL AST 16 L (17-59) U/L ALT 13 (6-50) U/L Alkaline Phosphatase 67 (38-126) U/L Troponin I < 0.012 (0.000-0.034) ng/mL Total Protein 7.0 (6.3-8.2) g/dL Albumin 4.1 (3.5-5.1) g/dL Lipase 138 (23-300) U/L <Shruthi Castro MD - Last Filed: 12/03/24 19:33> Imaging Data Radiologist's impression: Impressions Chest X-Ray 12/03/24 19:15 IMPRESSION: No focal infiltrate or effusion. <Shruthi Castro MD - Last Filed: 12/03/24 19:33> ECG Data EKG #1: Attestation: I personally reviewed and interpreted this ECG as follows: <Shruthi Castro MD - Last Filed: 12/03/24 19:33> ECG completion date: 12/03/24 <Shruthi Castro MD - Last Filed: 12/03/24 19:33> Interpretation: NORMAL SINUS RHYTHM AT 66 BEATS PER MINUTE, WIDESPREAD ST ELEVATION MAINLY IN THE INFERIOR LEADS, POSSIBLE EARLY REPOLARIZATION, PERICARDITIS < Shruthi Castro MD - Last Filed: 12/03/24 19:33> Critical Care Time Critical Care Time Critical Care Time: No <Shruthi Castro MD - Last Filed: 12/03/24 19:33> Discharge Plan Discharge Clinical Impression: Chest pain at rest <Dianne Claros APRN - Last Filed: 12/03/24 18:29> Patient Disposition: Still a Patient <Dianne Claros APRN - Last Filed: 12/03/24 18:29> Condition: Improved <Dianne Claros APRN - Last Filed: 12/03/24 18:29> Patient Language: Kenyan <Dianne Claros APRN - Last Filed: 12/03/24 18:29> Prescriptions: No Action levothyroxine 125 mcg tablet 125 mcg PO DAILY aspirin 81 mg Tablet 81 mg PO DAILY levetiracetam [Keppra] 500 mg Tablet 500 mg PO Q12HR Qty: 60 3RF levofloxacin 750 mg tablet 750 mg PO DAILY Qty: 3 0RF <Dianne Claros APRN - Last Filed: 12/03/24 18:29> Follow-up/Referrals: Marcy,Hossein Bowens MD [Primary Care Provider] - <Dianne Claros APRN - Last Filed: 12/03/24 18:29> Quality HEART score for chest pain patients History: moderately suspicious <Shruthi Castro MD - Last Filed: 12/03/24 19:33> ECG: non specific repolarization disturbance/LBTB/PM <Shruthi Castro MD - Last Filed: 12/03/24 19:33> Age: > 45 and < 65 years <Shruthi Castro MD - Last Filed: 12/03/24 19:33> Risk factors: 1 or 2 risk factors <Shruthi Castro MD - Last Filed: 12/03/24 19:33> Troponin: < or = to 1x normal limit <Shruthi Castro MD - Last Filed: 12/03/24 19:33> Heart score: 4 <Shruthi Castro MD - Last Filed: 12/03/24 19:33>
[2024-12-03 18:31] LABS: Basophils Absolute Auto 0.1 K/mm3 (0.0-0.1); Basophils Percent Auto 0.7 % (0.2-1.2); Eosinophils Absolute Auto 0.1 K/mm3 (0-0.3); Eosinophils Percent Auto 1.6 % (0-4.4); Hemoglobin 15.5 g/dL (14.0-18.0); Immature Granulocyte Absolute 0.03 K/mm3 (0.00-0.031); Immature Granulocyte Percent A 0.4 % (0-0.5); Lymphocytes Absolute Auto 1.42 K/mm3 (0.9-3.2); Lymphocytes Percent Auto 18.7 % (18.3-44.2); Mean Corpuscular Hemoglobin 31.9 pg (26-34); Mean Corpuscular Volume 96.7 fl (80-100); Mean Platelet Volume 10.5 fl (7.4-10.4); Monocytes Absolute Auto 0.6 K/mm3 (0.1-0.6); Monocytes Percent Auto 7.6 % (2.6-8.5); Neutrophils Absolute Auto 5.4 K/mm3 (1.3-6.7); Platelet Count Result 205 k/mm3 (150-375); Red Blood Count 4.86 M/mm3 (4.6-6.20); Red Cell Distribution Width 11.3 % (11.5-14.5); White Blood Count 7.6 K/mm3 (4.5-10.0)
--- NOTE | 2024-12-03 18:36 | ECG_ITS ---
Test Date: 2024-12-03 18:39:07 Measurements Intervals [place] Rate: 62 P: 32 MI: 151 QRS: 42 QRSD: 85 T: 65 QT: 404 QTc: 413 Interpretive Statements SINUS RHYTHM EARLY REPOLARIZATION [ST ELEVATION WITH NORMALLY INFLECTED T-WAVE] Compared to ECG 12/03/2024 18:15:07 No significant changes Electronically Signed On 12-04-2024 11:53:13 OPERATING ROOM RN by Chelsey Birmingham
[2024-12-03 18:42] LABS: INR 0.9; Prothrombin Time 12.5 Seconds (11.1-14.7)
[2024-12-03 18:43] LABS: Partial Thromboplastin Time 22.8 Seconds (22.3-36.8)
[2024-12-03 18:44] LABS: Alanine Aminotransferase 13 U/L (6-50); Albumin Level 4.1 g/dL (3.5-5.1); Alkaline Phosphatase 67 U/L (38-126); Anion Gap 8 mmol/L (4-12); Aspartate Amino Transferase 16 U/L (17-59); Bilirubin,Total 1.1 mg/dL (0.2-1.3); Blood Urea Nitrogen 15 mg/dL (9-20); Calcium 9.2 mg/dL (8.4-10.2); Carbon Dioxide 31 mmol/L (22-30); Chloride 101 mmol/L (98-107); Estimated CRCL calculation 76 ml/min; Estimated Glomerular Filt Rate > 60; Glucose 91 mg/dL (65-110); Lipase 138 U/L (23-300); Potassium 4.2 mmol/L (3.4-5.0); Sodium 140 mmol/L (137-145)
[2024-12-03 18:51] VITALS: BP 117/78; PULSE 62; RESP 21; O2SAT 100
[2024-12-03] MEDS: ASPIRIN 81 MG CHEWABLE TABLET 324 MG PO (18:51)
[2024-12-03 18:55] LABS: Troponin I < 0.012 ng/mL (0.000-0.034)
[2024-12-03 19:03] VITALS: BP 117/82; PULSE 58; RESP 21; O2SAT 100
[2024-12-03 19:22] LABS: Erythrocyte Sedimentation Rate 3 mm/hr (0-20)
[2024-12-03 19:56] VITALS: BP 114/78; PULSE 59; RESP 16; O2SAT 99
[2024-12-03] MEDS: ONDANSETRON INJ 4 MG/2 ML VIAL IV PUSH (20:29)
[2024-12-03] MEDS: MORPHINE SULFATE (*CRX) 2 MG/ML INJ IV PUSH (20:31)
--- NOTE | 2024-12-03 21:11 | ECG_ITS ---
Test Date: 2024-12-03 21:16:03 Measurements Intervals [place] Rate: 55 P: 5 MS: 152 QRS: 15 QRSD: 80 T: 55 QT: 420 QTc: 404 Interpretive Statements SINUS BRADYCARDIA EARLY REPOLARIZATION [ST ELEVATION WITH NORMALLY INFLECTED T-WAVE] Compared to ECG 12/03/2024 18:39:07 ST (T wave) deviation now present Sinus rhythm no longer present Electronically Signed On 12-04-2024 11:54:29 MATHEMATICAL PHYSICIST by Chelsey Birmingham
[2024-12-03 21:26] VITALS: BP 120/84; PULSE 67; RESP 15; O2SAT 100
[2024-12-03 21:35] LABS: Troponin I < 0.012 ng/mL (0.000-0.034)
[2024-12-03 22:55] VITALS: BP 126/73; PULSE 60; RESP 16; TEMP 36.8; O2SAT 100
--- NOTE | 2024-12-03 22:56 | ADMGEN ---
2256: This patient, Wai Ramírez, was admitted to IMU Room 209-01. Patient/family oriented to hospital policies and general routines including ID bracelet, bed and alarms, visiting hours, pain management, procedures, bathroom and other care routines, personal items, smoking policy, room service/diet, and visiting hours. Information on how to activate the Rapid Response Team has been discussed. Patient/Family are encouraged to report perceived risks to care and to ask questions if they do not understand what they are told or what they should do.
[2024-12-03 22:57] VITALS: BMI 22.1
[2024-12-04] VITALS (15 sets, daily range): BP systolic 88–96; BP diastolic 54–66; PULSE 54–61; RESP 16–18; TEMP 36.6–37.1; O2SAT 95–99
--- NOTE | 2024-12-04 | ECHO_ITS ---
Patient Info Name: Wai Ramírez Age: 59 years : 1965 Gender: Male Ht: 70 in Wt: 154 lbs BSA: 1.86 m2 HR: 57 bpm BP: 96 / 60 mmHg Heart Rhythm: Sinus Rhythm Technical Quality: Good Exam Date: 12/04/2024 10:15 AM Exam Location: Echo Lab Patient Status: Inpatient Admit Date: 12/03/2024 Staff Ordering Physician: Sigifredo Ferris APRN Consumer Lending Manager: Ilene Lawrence RDCS Attending Provider: Ruy Olivera MD Referring Physician: Barrington ROACH; Exam Type: CA echo dop color flow w con Study Info Indications R07.9 - Chest pain, unspecified Complete two-dimensional, color flow and Doppler transthoracic echocardiogram is performed with contrast to opacify the left ventricle and to improve the deliniation of the left ventricle endocardial borders. Contrast/Agitated Saline Contrast/Ag. Saline: Definity Amount: 2.00 ml Administered By: Ilene Lawrence RDCS Existing IV Access: Yes IV Access Condition: patent with no signs of infiltration Summary 1. Definity contrast administered improved wall motion interpretation. 2. Left ventricular chamber dimension is normal. 3. Left ventricular systolic function is normal, estimated at 60-65%. 4. There is mild concentric increased left ventricular wall thickness. 5. The left ventricular diastolic function is normal. 6. E/e' 6 is not elevated. 7. There is mild mitral valve regurgitation. 8. No pulmonary hypertension, estimated pulmonary arterial systolic pressure is 17 mmHg. Left Ventricle E/e' 6 is not elevated. Definity contrast administered improved wall motion interpretation. Left ventricular chamber dimension is normal. Left ventricular systolic function is normal, estimated at 60-65%. There is mild concentric increased left ventricular wall thickness. The left ventricular diastolic function is normal. Right Ventricle Right ventricular systolic function is normal and with normal TAPSE 2.1 cm. Right ventricular chamber dimension is normal. Left Atria Left atrial chamber dimension is normal. Right Atria Right atrial chamber dimension is normal. Aortic Valve The aortic valve is trileaflet. There is no aortic valve stenosis. There is no aortic valve regurgitation. Pulmonic Valve There is no pulmonic regurgitation. Mitral Valve There is no mitral valve stenosis. There is mild mitral valve regurgitation. Tricuspid Valve There is no tricuspid valve regurgitation. No pulmonary hypertension, estimated pulmonary arterial systolic pressure is 17 mmHg. Pericardium/Pleural There is no pericardial effusion. Inferior Vena Cava Normal inferior vena cava with >50% collapse upon inspiration consistent with normal right atrial pressure, 5 mmHg. Aorta The aortic root size at the sinus of Valsalva is normal. Left Ventricular Outflow Tract Name Value Normal LVOT 2D LVOT Diameter 2.03 cm LVOT Doppler LVOT Peak Gradient 2 mmHg LVOT Mean Gradient 1 mmHg LVOT VTI 12.61 cm LVOT VTI/AV VTI Ratio 0.63 LVOT Stroke Volume 40.78 ml LVOT CO 2.33 l/min LVOT CI 1.25 L/min/m2 Pulmonic Valve Name Value Normal RVOT Doppler RVOT Peak Gradient 1 mmHg Mitral Valve Name Value Normal MV Doppler MV Decel [place] 208.07 cm/s2 MV PHT 0 s MV Area (PHT) 2.52 cm2 4.00-5.00 MV Regurgitation Doppler MR Peak Gradient 92 mmHg MV Diastolic Function MV E Peak Velocity 62.76 cm/s MV A Peak Velocity 62.31 cm/s MV E/A 1.01 MV Decel Time 0 s MV Annular TDI MV E/e' (Septal) 7.30 <=8.00 MV E/e' (Lateral) 6.04 <=8.00 MV E/e' (Average) 6.67 Tricuspid Valve Name Value Normal TV Regurgitation Doppler TR Peak Velocity 169.77 cm/s TR Peak Gradient 12 mmHg Estimated PAP/RSVP RA Pressure 5 mmHg <=5 PA Systolic Pressure 17 mmHg <36 RV Systolic Pressure 17 mmHg <36 Aorta Name Value Normal Ascending Aorta Ao Root Diameter (MM) 3.47 cm Ao Root Diam Index (MM) 1.87 cm/m2 Aortic Valve Name Value Normal AV Doppler AV Peak Velocity 111.17 cm/s AV Peak Gradient 5 mmHg AV Mean Gradient 2 mmHg AV VTI 20.16 cm AV Area (Cont Eq VTI) 2.02 cm2 >=3.00 AV Area (Cont Eq Martin) 2.07 cm2 AV Regurgitation 2D LVOT Area 3.23 cm2 Ventricles Name Value Normal LV Dimensions 2D/MM IVS Diastolic Thickness (2D) 1.25 cm 0.60-1.00 LVID Diastole (2D) 4.67 cm 4.20-5.80 LVIW Diastolic Thickness (2D) 1.04 cm 0.60-1.00 LVID Systole (2D) 2.54 cm 2.50-4.00 LVOT Diameter 2.03 cm LV Mass (2D Cubed) 197.27 g 88.00-224.00 LV Mass Index (2D Cubed) 0.01 g/cm2 0.00-0.01 Relative Wall Thickness (2D) 0.45 LV Fractional Shortening/Ejection Fraction 2D/MM LV Fractional Shortening (2D) 46 % 25-43 LV EF (2D Teicholz) 77 % 52-72 LV Diastolic Volume (4C MOD) 85.21 ml LV EF (4C MOD) 60 % LV Diastolic Volume (2C MOD) 76.97 ml LV EF (2C MOD) 59 % LV Diastolic Volume (BP MOD) 81.96 ml 62.00-150.00 LV Diastolic Volume Index (BP MOD) 0.04 l/m2 0.03-0.07 LV Systolic Volume (BP MOD) 32.61 ml 21.00-61.00 LV Systolic Volume Index (BP MOD) 0.02 l/m2 0.01-0.03 LV EF (BP MOD) 60 % 52-72 LV Diastolic Length (4C) 7.86 cm LV Systolic Length (4C) 6.76 cm LV Stroke Volume (4C MOD) 50.88 ml Atria Name Value Normal LA Dimensions LA Dimension (MM) 4.02 cm 3.00-4.10 LA Volume (4C A-L) 31.52 ml LA Volume (BP A-L) 39.63 ml RA Dimensions RA Area (4C) 14.38 cm2 <=18.00 Report Signatures
--- NOTE | 2024-12-04 | ECG_ITS ---
Test Date: 2024-12-04 00:06:03 Measurements Intervals [place] Rate: 55 P: 51 CA: 155 QRS: 26 QRSD: 89 T: 52 QT: 425 QTc: 410 Interpretive Statements SINUS BRADYCARDIA EARLY REPOLARIZATION [ST ELEVATION WITH NORMALLY INFLECTED T-WAVE] Compared to ECG 12/03/2024 21:16:03 No change Electronically Signed On 12-04-2024 11:55:57 HEDGE FUND ACCOUNTANT by Chelsey Birmingham
--- NOTE | 2024-12-04 00:10 | PM.IMHP ---
H&P: HPI History of Present Illness Date/Time: 12/04/24 00:10 Chief Complaint: Chest pain Narrative: This is a 59-year-old male patient with a history of CAD, seizures, chronic back pain, hypothyroidism, neurofibromatosis and hyperlipidemia who presents to the emergency department complaining of chest pain. Initial EKG obtained no prior on record appeared to be a STEMI so nursery laborer was activated. On review Dr. Grimm was able to find old EKG for [facility] system with same elevations present thus nursery laborer was canceled. Patient received aspirin and chest pain improved. Patient reported that it felt worse when laying down better when sitting up but sitting in the ER bed was making his chronic back pain comfortable. He took naproxen before coming to ER. Remainder of the emergency department workup showed negative troponins x3 as well as normal inflammatory markers. Cardiology suspecting pericarditis. Patient admitted to obtain echocardiogram. Lipid panel checked showing elevated cholesterol with elevated LDL so we will initiate statin therapy. Review of Systems Review of Systems: All systems reviewed & are unremarkable except as noted in HPI and below PMFSH Past Medical History Medical History Rheumatic fever with murmur Hypothyroidism CAD (coronary artery disease) Hx of [place] when 39yo Neurofibromatosis Surgical History Surgical History History of dental surgery Hx of appendectomy Family History Family History Mother Heart disease Sibling Heart disease Social History Social History Social History: Patient lives at home with his . He has 4 children who live outside the home. No pets. Drinks 1 alcoholic drink every 2-3 weeks. No tobacco use. Lifelong nonsmoker. No history of drug use. He is a full code. He nominates his to be the individual would make medical decisions for him if he is not able. Smoking status: Never smoker Alcohol intake: never Substance use: never Do You Feel Safe in your Home?: Yes Lack of Transportation: No Lack of Food: Never True Current Housing: I Have Housing Concerned About Future Housing: No Difficulty Paying Gas/Electric Bills: No Difficulty Paying for Meds: No Currently Unemployed: No Education: High School Diploma/GED Difficulty w/ Childcare or Family Care: No Gender identity (if verbalized by the patient): Male Spiritual care concerns: No Meds Home Medications and Allergies Home Medications ?Medication ?Instructions ?Recorded ?Confirmed ?Type aspirin 81 mg tablet 81 mg PO DAILY 10/09/20 12/03/24 History levothyroxine 125 mcg tablet 125 mcg PO DAILY 10/09/20 12/03/24 History levetiracetam 500 mg tablet 500 mg PO Q12HR #60 tabs 10/10/20 12/03/24 Rx (Keppra) gabapentin 300 mg capsule 300 mg PO DAILY 12/03/24 12/03/24 History Allergies Allergy/AdvReac Type Severity Reaction Status Date / Time Penicillins AdvReac Intermediate Rash Verified 12/03/24 18:54 Vital Signs Vital Signs - 24 hr 12/03/24 18:13 12/03/24 18:51 12/03/24 19:03 Temperature 36.7 C Pulse Rate 66 62 58 L Respiratory Rate 20 21 H 21 H Blood Pressure 131/79 117/78 117/82 Pulse Oximetry 100 100 100 Oxygen Delivery Room Air 12/03/24 19:18 12/03/24 19:56 12/03/24 21:26 Temperature Pulse Rate 59 L 67 Respiratory Rate 16 15 Blood Pressure 114/78 120/84 Pulse Oximetry 99 100 Oxygen Delivery Room Air 12/03/24 22:55 12/03/24 23:38 Temperature 36.8 C Pulse Rate 60 Respiratory Rate 16 Blood Pressure 126/73 Pulse Oximetry 100 Oxygen Delivery Room Air Exam Narrative: GENERAL APPEARANCE: WELL-DEVELOPED, WELL-NOURISHED SKIN: WARM AND DRY HEAD: NORMOCEPHALIC, NONTRAUMATIC EYES: CLEAR CONJUNCTIVA NECK: SUPPLE, NONTENDER CHEST AND RESPIRATORY: AIRWAY PATENT, NO RESPIRATORY DISTRESS, NO ACCESSORY MUSCLE USE HEART: REGULAR RATE/RHYTHM ABDOMEN: SOFT, NONTENDER, NO ORGANOMEGALY, QUIET BOWEL SOUNDS VASCULAR: NORMAL PERIPHERAL PULSES, NORMAL CAPILLARY REFILL. MUSCULOSKELETAL: NORMAL RANGE OF MOTION, NONTENDER BACK NEUROLOGIC: ALERT AND ORIENTED ?3, NO GROSS MOTOR DEFICIT H&P: Results Labs Labs: Short CBC 12/03/24 Range/Units 18:22 WBC 7.6 (4.5-10.0) K/mm3 Hgb 15.5 (14.0-18.0) g/dL Hct 47.0 (42.0-52.0) % Plt Count 205 (150-375) k/mm3 BMP 12/03/24 18:22 Sodium 140 Potassium 4.2 Chloride 101 Carbon Dioxide 31 H BUN 15 Creatinine 0.94 Glucose 91 Calcium 9.2 Cardiac Enzymes 12/03/24 12/03/24 Range/Units 18:22 21:09 Troponin I < 0.012 < 0.012 (0.000-0.034) ng/mL Liver Function 12/03/24 Range/Units 18:22 Total Bilirubin 1.1 (0.2-1.3) mg/dL AST 16 L (17-59) U/L ALT 13 (6-50) U/L Alkaline Phosphatase 67 (38-126) U/L Albumin 4.1 (3.5-5.1) g/dL Pulse Oximetry SpO2 results: 95-100% on room air Attestation: I personally reviewed and interpreted this pulse oximetry as follows: Interpretation: No need for supplemental oxygenation at this time ECG Attestation: I personally reviewed and interpreted this ECG as follows: ECG completion date: 12/04/24 ECG completion time: 00:06 Prior ECG tracings: available for review Interpretation: Sinus bradycardia rate 55 NE interval 155 QRS duration 89 QTC [address] elevation noted in leads 1 to AVF V2 V3 before V5 and V6 with ST depression in AVR, unchanged from prior Imaging Chest x-ray: Radiologist's impression: CHEST RADIOGRAPH CLINICAL HISTORY: CP . COMPARISON: 10/09/2020 TECHNIQUE: Single portable view of the chest. FINDINGS The cardiomediastinal silhouette is unremarkable. The lungs are clear. Visualized osseous structures and soft tissues are unremarkable. IMPRESSION: No focal infiltrate or effusion. Reviewed, dictated and finalized at location A. ING MACHINE OPERATOR CT scan - chest: Radiologist's impression: EXAMINATION: CTA chest PE protocol DATE: 12/03/2024 20:05 DIGGING MACHINE OPERATOR INDICATION: Shortness of breath, back and chest pain TECHNIQUE: Computed tomographic angiography (CTA) of the chest was performed with 100 mL Omnipaque-350 intravenous contrast. The dose-length product was 235.43 mGy-cm. Maximum intensity projection 3D-reconstructions of the aorta and other arteries were constructed by the technologist on a separate workstation. COMPARISON: Reference is made to CT examination of the chest abdomen and pelvis dated 04/24/2019 FINDINGS: No filling defect is identified within the main or proximal pulmonary arteries. The main pulmonary artery is not enlarged. The thoracic aorta is nonaneurysmal, and without dissection. The lungs are clear. No acute compression fracture is identified. Prior fracture deformity is identified within the proximal sternum. The heart is borderline enlarged, without pericardial effusion. Within the upper abdomen: Redemonstration of a subcentimeter focus of decreased attenuation within segment 2 of the liver, unchanged from 2019, representing either a cyst or hemangioma. The gallbladder is only minimally distended, and otherwise unremarkable. Fecal stasis within the colon. IMPRESSION: No pulmonary embolus. No aortic dissection or aneurysmal dilatation. The lungs are clear. Reviewed, dictated and finalized at location A. ING MACHINE OPERATOR Assessment and Plan Assessment and plan (1) Chest pain: Code(s): R07.9 - Chest pain, unspecified Status: Acute Assessment and Plan: -EKG appeared to be STEMI in ER but Cardiology found old EKG in another system that is the same, STEMI cancelled -Troponin normal x3 -Dr. Grimm with Cardiology requested Echo, suspects possible pericarditis -CTA negative -Patient comfortable without return of chest pain -NPO per Cardiology but unlikely to need stress echo or cath (2) CAD (coronary artery disease): Code(s): I25.10 - Atherosclerotic heart disease of [place] coronary artery without angina pectoris Status: Acute Assessment and Plan: -Continue aspirin -Check lipid panel (3) Chronic back pain: Code(s): M54.9 - Dorsalgia, unspecified; G89.29 - Other chronic pain Status: Acute Assessment and Plan: -Patient complaining that ER stretcher exacerbated chronic back pain (4) Hyperlipidemia: Code(s): E78.5 - Hyperlipidemia, unspecified Status: Acute Assessment and Plan: -lipid panel obtained with elevated total cholesterol and elevated LDL -Initiate statin therapy (5) History of seizure disorder: Code(s): Z86.69 - Personal history of other diseases of the nervous system and sense organs Status: Acute Assessment and Plan: -Continue Keppra (6) Hypothyroidism: Code(s): E03.9 - Hypothyroidism, unspecified Status: Acute Assessment and Plan: -Continue levothyroxine Quality VTE Prophylaxis VTE prophylaxis: pharmacologic ordered Hospitalist MIPS Advance Care Plan I have confirmed that the patient's Advanced Care Plan is present, code status is documented, or surrogate decision maker is listed in patient medical record.: Yes Medication Reconciliation I have utilized all available resources to obtain, update and review the patients current medications (includes all prescriptions, OTC, herbals, cannabis, and nutritional supplements).: Yes
[2024-12-04 00:28] LABS: Cholesterol 218 mg/dL (0-200); HDL Direct 45 mg/dL; Triglycerides 99 mg/dL (<150)
[2024-12-04 00:40] LABS: LDL Cholesterol Direct 131 mg/dL
[2024-12-04 00:41] LABS: Troponin I < 0.012 ng/mL (0.000-0.034)
[2024-12-04 01:25] LABS: Hemoglobin A1C 5.1 % (<5.7)
[2024-12-04 05:06] LABS: Basophils Percent Auto 0.6 % (0.2-1.2); Eosinophils Absolute Auto 0.1 K/mm3 (0-0.3); Eosinophils Percent Auto 1.7 % (0-4.4); Hematocrit 40.1 % (42.0-52.0); Hemoglobin 13.5 g/dL (14.0-18.0); Immature Granulocyte Absolute 0.02 K/mm3 (0.00-0.031); Immature Granulocyte Percent A 0.3 % (0-0.5); Lymphocytes Absolute Auto 1.55 K/mm3 (0.9-3.2); Lymphocytes Percent Auto 23.8 % (18.3-44.2); Mean Corpuscular HGB Conc 33.7 g/dl (32-36); Mean Corpuscular Hemoglobin 31.9 pg (26-34); Mean Corpuscular Volume 94.8 fl (80-100); Mean Platelet Volume 10.8 fl (7.4-10.4); Monocytes Absolute Auto 0.5 K/mm3 (0.1-0.6); Monocytes Percent Auto 7.4 % (2.6-8.5); Neutrophils Absolute Auto 4.3 K/mm3 (1.3-6.7); Neutrophils Percent Auto 66.2 % (45.5-73.1); Platelet Count Result 169 k/mm3 (150-375); Red Blood Count 4.23 M/mm3 (4.6-6.20); Red Cell Distribution Width 11.4 % (11.5-14.5); White Blood Count 6.5 K/mm3 (4.5-10.0)
[2024-12-04 05:20] LABS: Alanine Aminotransferase 11 U/L (6-50); Albumin Level 3.4 g/dL (3.5-5.1); Alkaline Phosphatase 55 U/L (38-126); Anion Gap 7 mmol/L (4-12); Aspartate Amino Transferase 14 U/L (17-59); Blood Urea Nitrogen 15 mg/dL (9-20); Calcium 8.4 mg/dL (8.4-10.2); Carbon Dioxide 28 mmol/L (22-30); Chloride 102 mmol/L (98-107); Estimated CRCL calculation 80 ml/min; Estimated Glomerular Filt Rate > 60; Glucose 97 mg/dL (65-110); Magnesium 2.1 mg/dL (1.6-2.3); Sodium 137 mmol/L (137-145)
[2024-12-04] MEDS: GABAPENTIN 300 MG CAPSULE PO (08:18)
[2024-12-04] MEDS: ASPIRIN 81 MG CHEWABLE TABLET PO (08:18)
[2024-12-04] MEDS: levETIRAcetam 500 MG TABLET PO ×2 (08:18→20:49)
[2024-12-04] MEDS: ROSUVASTATIN 20 MG TABLET PO (08:18)
[2024-12-04] MEDS: LEVOTHYROXINE SODIUM 125 MCG TABLET PO (08:18)
[2024-12-04] MEDS: HYDROcodone/acetaminophen (*CRX) 5-325 MG TABLET 1 TAB PO ×2 (08:19→20:52)
--- NOTE | 2024-12-04 08:40 | ECG_ITS ---
Test Date: 2024-12-04 08:50:40 Measurements Intervals [place] Rate: 55 P: 57 CT: 158 QRS: 22 QRSD: 87 T: 62 QT: 428 QTc: 411 Interpretive Statements SINUS BRADYCARDIA EARLY REPOLARIZATION [ST ELEVATION WITH NORMALLY INFLECTED T WAVE] WARNING: DATA QUALITY MAY AFFECT INTERPRETATION Compared to ECG 12/04/2024 00:06:03 No significant changes Electronically Signed On 12-04-2024 11:57:54 SENIOR SALES ADMINISTRATOR by Chelsey Birmingham
--- NOTE | 2024-12-04 10:02 | PM.IMPN ---
Progress Note: A&P Assessment and Plan (1) Chest pain: Code(s): R07.9 - Chest pain, unspecified Status: Acute (2) CAD (coronary artery disease): Code(s): I25.10 - Atherosclerotic heart disease of [place] coronary artery without angina pectoris Status: Acute (3) Chronic back pain: Code(s): M54.9 - Dorsalgia, unspecified; G89.29 - Other chronic pain Status: Acute (4) Hyperlipidemia: Code(s): E78.5 - Hyperlipidemia, unspecified Status: Acute (5) History of seizure disorder: Code(s): Z86.69 - Personal history of other diseases of the nervous system and sense organs Status: Acute (6) Hypothyroidism: Code(s): E03.9 - Hypothyroidism, unspecified Status: Acute Plan Patient reported chest pain earlier today. Presented with chest pain that started approximately 3 4:00 a.m. in the evening also had cough for past 2 weeks. Associated shortness of breath and pain in the center of his back. History of STEMI at age 39 takes aspirin every day. Sick contact with father having pneumonia 2 weeks ago. EKG on arrival showed ST-elevation in inferior leads STEMI was called. Cardiology was consulted and EKG was reviewed with the older EKG in 2019 which looked exactly the same. Suspected early repolarization changes. STEMI call was canceled. Laboratory workup revealed normal WBC of 7.6 hemoglobin 15.5 Chem panel was unremarkable. Troponin was negative less than 0.012. Lipase was normal at 138. Chest x-ray showed no focal infiltrate or effusion. Serial troponin was performed which remained negative x3. In fact markers were not negative as well. Cardiology suspect pericarditis. CTA chest was performed which was negative for PE aortic dissection. Lungs were clear. Cardiology to see this a.m.. Will start colchicine Continue on aspirin. No seizure disorder continue Keppra Hypothyroidism levothyroxine Hyperlipidemia lipid panel with elevated cholesterol and elevated LDL initiated statin therapy. History of STEMI in the past with no stents in the past. History of neurofibromatosis Subjective Date/time seen: 12/04/24 10:02 Interval history: Patient reported chest pain earlier today. Presented with chest pain that started approximately 3 4:00 a.m. in the evening also had cough for past 2 weeks. Associated shortness of breath and pain in the center of his back. History of STEMI at age 39 takes aspirin every day. Sick contact with father having pneumonia 2 weeks ago. EKG on arrival showed ST-elevation in inferior leads STEMI was called. Cardiology was consulted and EKG was reviewed with the older EKG in 2019 which looked exactly the same. Suspected early repolarization changes. STEMI call was canceled. Laboratory workup revealed normal WBC of 7.6 hemoglobin 15.5 Chem panel was unremarkable. Troponin was negative less than 0.012. Lipase was normal at 138. Chest x-ray showed no focal infiltrate or effusion. Serial troponin was performed which remained negative x3. In fact markers were not negative as well. Cardiology suspect pericarditis. CTA chest was performed which was negative for PE aortic dissection. Lungs were clear. Cardiology to see this a.m.. Continue on aspirin. No seizure disorder continue Keppra Hypothyroidism levothyroxine Hyperlipidemia lipid panel with elevated cholesterol and elevated LDL initiated statin therapy. History of STEMI in the past History of neurofibromatosis Review of Systems Review of Systems: All systems reviewed & are unremarkable except as noted in HPI and below Exam Narrative: GENERAL APPEARANCE: WELL-DEVELOPED, WELL-NOURISHED SKIN: WARM AND DRY HEAD: NORMOCEPHALIC, NONTRAUMATIC EYES: CLEAR CONJUNCTIVA NECK: SUPPLE, NONTENDER CHEST AND RESPIRATORY: AIRWAY PATENT, NO RESPIRATORY DISTRESS, NO ACCESSORY MUSCLE USE HEART: REGULAR RATE/RHYTHM ABDOMEN: SOFT, NONTENDER, NO ORGANOMEGALY, QUIET BOWEL SOUNDS VASCULAR: NORMAL PERIPHERAL PULSES, NORMAL CAPILLARY REFILL. MUSCULOSKELETAL: NORMAL RANGE OF MOTION, NONTENDER BACK NEUROLOGIC: ALERT AND ORIENTED ?3, NO GROSS MOTOR DEFICIT Objective Data Vital Signs Vital Signs: Vital Signs - 24 hr 12/03/24 18:13 12/03/24 18:51 12/03/24 19:03 Temperature 98.1 F Pulse Rate 66 62 58 L Respiratory Rate 20 21 H 21 H Blood Pressure 131/79 117/78 117/82 Pulse Oximetry 100 100 100 Oxygen Delivery Room Air 12/03/24 19:18 12/03/24 19:56 12/03/24 21:26 Temperature Pulse Rate 59 L 67 Respiratory Rate 16 15 Blood Pressure 114/78 120/84 Pulse Oximetry 99 100 Oxygen Delivery Room Air 12/03/24 22:55 12/03/24 23:38 12/04/24 00:00 Temperature 98.3 F Pulse Rate 60 55 L Respiratory Rate 16 Blood Pressure 126/73 Pulse Oximetry 100 Oxygen Delivery Room Air 12/04/24 02:00 12/04/24 03:40 12/04/24 03:50 Temperature 97.8 F Pulse Rate 54 L 57 L Respiratory Rate 16 Blood Pressure 96/60 L Pulse Oximetry 95 Oxygen Delivery Room Air 12/04/24 04:00 12/04/24 05:47 12/04/24 08:08 Temperature 98.3 F Pulse Rate 56 L 57 L 56 L Respiratory Rate 18 Blood Pressure 96/60 L Pulse Oximetry 99 Oxygen Delivery Intake/Output Intake/Output: Intake & Output 12/01/24 12/02/24 12/03/24 12/04/24 23:59 23:59 23:59 23:59 Intake Total 300 Balance 300 Meds/Results Medications: Active Medications Generic Name Dose Route Start Last Admin Trade Name Freq PRN Reason Stop Dose Admin Acetaminophen 650 mg 12/03/24 19:33 Acetaminophen 325 Mg Tablet PO Q4H PRN Mild Pain (1-3) or Fever Hydrocodone Bitart/Acetaminophen 1 tab 12/04/24 03:23 12/04/24 08:19 Hydrocodone/Acetaminophen (*Crx) 5-325 Mg Tablet PO 1 tab Q6H PRN Administration Pain Rated 4-6 Aspirin 81 mg 12/04/24 08:00 12/04/24 08:18 Aspirin 81 Mg Chewable Tablet PO 81 mg DAILY@0800 [facility] Administration Enoxaparin Sodium 40 mg 12/04/24 09:00 Enoxaparin 40 Mg/0.4 Ml Syringe SUB-Q DAILY [facility] Gabapentin 300 mg 12/04/24 09:00 12/04/24 08:18 Gabapentin 300 Mg Capsule PO 300 mg DAILY KRISTA Administration Levetiracetam 500 mg 12/04/24 09:00 12/04/24 08:18 Levetiracetam 500 Mg Tablet PO 500 mg Q12HR KRISTA Administration Levothyroxine Sodium 125 mcg 12/04/24 06:30 12/04/24 08:18 Levothyroxine Sodium 125 Mcg Tablet PO 125 mcg DAILY@0630 [facility] Administration Morphine Sulfate 2 mg 12/04/24 03:23 Morphine Sulfate (*Crx) 2 Mg/Ml Inj IV PUSH Q4H PRN Pain Rated 7-10 Perflutren Lipid Microsphere 0 ml 12/03/24 23:30 Perflutren Lipid Microspheres 1.5 Ml Vial Diluted To 10 Ml Total Volume IV PUSH 12/06/24 23:30 ONCE PRN adequate visualization Protocol Rosuvastatin Calcium 20 mg 12/04/24 09:00 12/04/24 08:18 Rosuvastatin 20 Mg Tablet PO 20 mg QAM KRISTA Administration Radiology Results: ITS Impressions Chest X-Ray 12/03/24 19:15 IMPRESSION: No focal infiltrate or effusion. Chest CTA 12/03/24 20:05 IMPRESSION: No pulmonary embolus. No aortic dissection or aneurysmal dilatation. The lungs are clear. Labs Labs: Laboratory Results - last 24 hr 12/03/24 12/03/24 12/04/24 18:22 21:09 00:04 WBC 7.6 RBC 4.86 Hgb 15.5 Hct 47.0 MCV 96.7 MCH 31.9 MCHC 33.0 RDW 11.3 L Plt Count 205 MPV 10.5 H Immature Gran % (Auto) 0.4 Neut % (Auto) 71.0 Lymph % (Auto) 18.7 [place] % (Auto) 7.6 Eos % (Auto) 1.6 Baso % (Auto) 0.7 Lymph # (Auto) 1.42 [place] # (Auto) 0.6 Eos # (Auto) 0.1 Baso # (Auto) 0.1 Abs Immat Gran (auto) 0.03 Absolute Neuts (auto) 5.4 Absolute Nucleated RBC 0.000 Nucleated RBC % 0.0 ESR 3 PT 12.5 INR 0.9 APTT 22.8 Sodium 140 Potassium 4.2 Chloride 101 Carbon Dioxide 31 H Anion Gap 8 BUN 15 Creatinine 0.94 Estim Creat Clear Calc 76 Estimated GFR > 60 Glucose 91 Hemoglobin A1c 5.1 Calcium 9.2 Magnesium Total Bilirubin 1.1 AST 16 L ALT 13 Alkaline Phosphatase 67 Troponin I < 0.012 < 0.012 < 0.012 Total Protein 7.0 Albumin 4.1 Triglycerides 99 Cholesterol 218 H LDL Cholesterol Direct 131 HDL Direct 45 Lipase 138 12/04/24 04:37 WBC 6.5 RBC 4.23 L Hgb 13.5 L Hct 40.1 L MCV 94.8 MCH 31.9 MCHC 33.7 RDW 11.4 L Plt Count 169 MPV 10.8 H Immature Gran % (Auto) 0.3 Neut % (Auto) 66.2 Lymph % (Auto) 23.8 [place] % (Auto) 7.4 Eos % (Auto) 1.7 Baso % (Auto) 0.6 Lymph # (Auto) 1.55 [place] # (Auto) 0.5 Eos # (Auto) 0.1 Baso # (Auto) 0.0 Abs Immat Gran (auto) 0.02 Absolute Neuts (auto) 4.3 Absolute Nucleated RBC 0.000 Nucleated RBC % 0.0 ESR PT INR APTT Sodium 137 Potassium 4.0 Chloride 102 Carbon Dioxide 28 Anion Gap 7 BUN 15 Creatinine 0.85 Estim Creat Clear Calc 80 Estimated GFR > 60 Glucose 97 Hemoglobin A1c Calcium 8.4 Magnesium 2.1 Total Bilirubin 1.0 AST 14 L ALT 11 Alkaline Phosphatase 55 Troponin I Total Protein 6.0 L Albumin 3.4 L Triglycerides Cholesterol LDL Cholesterol Direct HDL Direct Lipase
[2024-12-04] MEDS: PERFLUTREN LIPID MICROSPHERES 1.5 ML VIAL DILUTED TO 10 ML TOTAL VOLUME IV PUSH (10:20)
--- NOTE | 2024-12-04 11:09 | IVDEFINITY ---
Prior to administration of IV Definity the patient was educated on the risks and benefits of the imaging enhancing agent including potential adverse side effects. The patient verbalized understanding. Allergies were verified. No exclusion criteria were identified and at least one of the following inclusion criteria were met: 1) physician request, 2) patient technically difficult to image (per the [place] [employer] guidelines of two or more segments not discernable within the apical view), or 3) questionable left ventricular function. ?
[2024-12-04] MEDS: ENOXAPARIN 40 MG/0.4 ML SYRINGE SUB-Q (12:22)
[2024-12-04] MEDS: COLCHICINE 0.6 MG TABLET PO ×2 (12:22→20:49)
--- NOTE | 2024-12-04 12:48 | PC.NURSE ---
0830 Patient complaining of chest pain midsternal with radiation to his back. Notified Geno Weiner and completed an EKG. Patient SB. Pain medication given with some relief. Echo was completed. Talked with Geno Weiner again around 1130 to see if anything else was to be done as patient would like to eat. Geno stated it would be ok for patient to now eat. Called Dr. Li for diet order. Left message.
--- NOTE | 2024-12-04 13:27 | P.CONCA_ITS ---
Assessment and Plan Assessment and plan (1) Chest pain: Code(s): R07.9 - Chest pain, unspecified Status: Acute (2) CAD (coronary artery disease): Code(s): I25.10 - Atherosclerotic heart disease of [place] coronary artery without angina pectoris Status: Acute (3) Hyperlipidemia: Code(s): E78.5 - Hyperlipidemia, unspecified Status: Acute Plan Assessment: Chest pain suggestive of pericarditis (pain worse with laying flat and improves with leaning forward); troponin x3 negative; EKG shows sinus rhythm with ST elevation suggestive of early repolarization and these changes are present on old EKGs as well; TTE shows normal LVEF and no regional wall motion abnormalities- ACS ruled out Known CAD, history of ME Hyperlipidemia Seizure disorder Hypothyroid Plan: Obtain TTE-shows normal LVEF of 60% and no regional wall motion abnormality Continue aspirin 81 mg daily If no contraindication then give high-dose NSAIDs for pericarditis-can give ibuprofen 800 mg t.i.d. for 1 week Start colchicine to prevent recurrence Trend troponin to peak EKG in a.m. Management of other noncardiac medical problems per primary team History of Present Illness History of Present Illness Consult date/time: 12/04/24 13:27 Reason For Visit: Chest Pain Narrative: 59-year-old male with past medical history of CAD, hyperlipidemia, rheumatic fever, neurofibromatosis, hypothyroid, epileptic seizure presents with chief complaint of chest pain that started yesterday. Patient describes the pain as a sharp pain on the left side of his chest with some radiation to the back and neck. The pain started when he was watching television. Pain is worse when he lays flat and improves when he leans forward. Pain is not associated with any diaphoresis or shortness of breath. He did not have similar symptoms prior to this. No shortness of breath, diaphoresis, lightheadedness, dizziness, presyncope, syncope, leg swelling, recent weight gain, nausea, emesis, cough, fever, chills, abdominal pain, diarrhea, headache. No sick contacts or recent infectious illness. Patient did not exert himself before onset of chest pain. His EKG at presentation showed sinus rhythm and ST elevation in inferior leads suspicious for acute ME and Cardiology was consulted further management. Review of older EKGs showed similar ST changes and hands acute ME was ruled out. Also troponin x3 negative. He continues to have sharp chest pain off and on since admission that gets better with leaning forward and worse with leaning flat suggestive of pericarditis. Review of Systems 2 Review of Systems: Complete review of systems was performed and negative other than those mentioned HPI [facility] Past Medical History Medical History Rheumatic fever with murmur Hypothyroidism CAD (coronary artery disease) Hx of ME when 39yo Neurofibromatosis Surgical History Surgical History History of dental surgery Hx of appendectomy Family History Family History Mother Heart disease Sibling Heart disease Social History Social History Social History: Patient lives at home with his . He has 4 children who live outside the home. No pets. Drinks 1 alcoholic drink every 2-3 weeks. No tobacco use. Lifelong nonsmoker. No history of drug use. He is a full code. He nominates his to be the individual would make medical decisions for him if he is not able. Smoking status: Never smoker Alcohol intake: never Substance use: never Do You Feel Safe in your Home?: Yes Lack of Transportation: No Lack of Food: Never True Current Housing: I Have Housing Concerned About Future Housing: No Difficulty Paying Gas/Electric Bills: No Difficulty Paying for Meds: No Currently Unemployed: No Education: High School Diploma/GED Difficulty w/ Childcare or Family Care: No Gender identity (if verbalized by the patient): Male Spiritual care concerns: No Meds Home Medications and Allergies Home Medications ?Medication ?Instructions ?Recorded ?Confirmed ?Type aspirin 81 mg tablet 81 mg PO DAILY 10/09/20 12/03/24 History levothyroxine 125 mcg tablet 125 mcg PO DAILY 10/09/20 12/03/24 History levetiracetam 500 mg tablet 500 mg PO Q12HR #60 tabs 10/10/20 12/03/24 Rx (Keppra) gabapentin 300 mg capsule 300 mg PO DAILY 12/03/24 12/03/24 History Allergies Allergy/AdvReac Type Severity Reaction Status Date / Time Penicillins AdvReac Intermediate Rash Verified 12/03/24 18:54 Vital Signs Vital Signs - 24 hr 12/03/24 18:13 12/03/24 18:51 12/03/24 19:03 Temperature 36.7 C Pulse Rate 66 62 58 L Respiratory Rate 20 21 H 21 H Blood Pressure 131/79 117/78 117/82 Pulse Oximetry 100 100 100 Oxygen Delivery Room Air 12/03/24 19:18 12/03/24 19:56 12/03/24 21:26 Temperature Pulse Rate 59 L 67 Respiratory Rate 16 15 Blood Pressure 114/78 120/84 Pulse Oximetry 99 100 Oxygen Delivery Room Air 12/03/24 22:55 12/03/24 23:38 12/04/24 00:00 Temperature 36.8 C Pulse Rate 60 55 L Respiratory Rate 16 Blood Pressure 126/73 Pulse Oximetry 100 Oxygen Delivery Room Air 12/04/24 02:00 12/04/24 03:40 12/04/24 03:50 Temperature 36.6 C Pulse Rate 54 L 57 L Respiratory Rate 16 Blood Pressure 96/60 L Pulse Oximetry 95 Oxygen Delivery Room Air 12/04/24 04:00 12/04/24 05:47 12/04/24 08:00 Temperature Pulse Rate 56 L 57 L 54 L Respiratory Rate Blood Pressure Pulse Oximetry Oxygen Delivery 12/04/24 08:08 12/04/24 10:00 12/04/24 11:35 Temperature 36.8 C 36.7 C Pulse Rate 56 L 58 L 57 L Respiratory Rate 18 18 Blood Pressure 96/60 L 95/66 L Pulse Oximetry 99 98 Oxygen Delivery 12/04/24 12:00 Temperature Pulse Rate 61 Respiratory Rate Blood Pressure Pulse Oximetry Oxygen Delivery Exam 2 Narrative: General: Alert oriented x3, no acute distress Neck: Supple, JVD + Chest: Bilaterally clear to auscultation, no rales or rhonchi Cardiac: S1, S2 +, regular rate, regular rhythm, no murmurs or rubs Extremities: No pedal edema, no skin rash Neurologic: Alert and oriented x3, no focal neurological deficits Results Labs and Meds 12/04/24 04:37 12/04/24 04:37 Lab results: Cardiac Enzymes 12/03/24 12/03/24 12/04/24 Range/Units 18:22 21:09 00:04 AST 16 L (17-59) U/L Troponin I < 0.012 < 0.012 < 0.012 (0.000-0.034) ng/mL 12/04/24 Range/Units 04:37 AST 14 L (17-59) U/L Troponin I (0.000-0.034) ng/mL Coagulation 12/03/24 Range/Units 18:22 PT 12.5 (11.1-14.7) Seconds APTT 22.8 (22.3-36.8) Seconds Lipids 12/04/24 Range/Units 00:04 Triglycerides 99 (<150) mg/dL Cholesterol 218 H (0-200) mg/dL CBC 12/03/24 12/04/24 Range/Units 18:22 04:37 WBC 7.6 6.5 (4.5-10.0) K/mm3 RBC 4.86 4.23 L (4.6-6.20) M/mm3 Hgb 15.5 13.5 L (14.0-18.0) g/dL Hct 47.0 40.1 L (42.0-52.0) % Plt Count 205 169 (150-375) k/mm3 Lymph # (Auto) 1.42 1.55 (0.9-3.2) K/mm3 Page # (Auto) 0.6 0.5 (0.1-0.6) K/mm3 Eos # (Auto) 0.1 0.1 (0-0.3) K/mm3 Baso # (Auto) 0.1 0.0 (0.0-0.1) K/mm3 Comprehensive Metabolic Panel 12/03/24 12/04/24 Range/Units 18:22 04:37 Sodium 140 137 (137-145) mmol/L Potassium 4.2 4.0 (3.4-5.0) mmol/L Chloride 101 102 (98-107) mmol/L Carbon Dioxide 31 H 28 (22-30) mmol/L BUN 15 15 (9-20) mg/dL Creatinine 0.94 0.85 (0.7-1.3) mg/dL Glucose 91 97 (65-110) mg/dL Calcium 9.2 8.4 (8.4-10.2) mg/dL AST 16 L 14 L (17-59) U/L ALT 13 11 (6-50) U/L Alkaline Phosphatase 67 55 (38-126) U/L Total Protein 7.0 6.0 L (6.3-8.2) g/dL Albumin 4.1 3.4 L (3.5-5.1) g/dL Intake and Output 12/03/24 12/04/24 12/04/24 23:59 07:59 15:59 Intake Total 300 Balance 300 Intake: Oral 300 Other: # Unmeasured Voids 1 Patient Weight 12/04/24 23:59 Weight 70.2 kg
[2024-12-05] VITALS (37 sets, daily range): BP systolic 94–125; BP diastolic 54–82; PULSE 54–70; RESP 12–22; TEMP 36.4–37; O2SAT 97–100
[2024-12-05 04:43] LABS: Basophils Absolute Auto 0.1 K/mm3 (0.0-0.1); Basophils Percent Auto 0.9 % (0.2-1.2); Eosinophils Absolute Auto 0.1 K/mm3 (0-0.3); Eosinophils Percent Auto 2.1 % (0-4.4); Hematocrit 43.7 % (42.0-52.0); Hemoglobin 13.9 g/dL (14.0-18.0); Immature Granulocyte Absolute 0.02 K/mm3 (0.00-0.031); Immature Granulocyte Percent A 0.3 % (0-0.5); Lymphocytes Absolute Auto 1.46 K/mm3 (0.9-3.2); Lymphocytes Percent Auto 25.1 % (18.3-44.2); Mean Corpuscular HGB Conc 31.8 g/dl (32-36); Mean Corpuscular Hemoglobin 31.4 pg (26-34); Mean Corpuscular Volume 98.9 fl (80-100); Mean Platelet Volume 10.7 fl (7.4-10.4); Monocytes Absolute Auto 0.5 K/mm3 (0.1-0.6); Monocytes Percent Auto 9.1 % (2.6-8.5); Neutrophils Absolute Auto 3.6 K/mm3 (1.3-6.7); Neutrophils Percent Auto 62.5 % (45.5-73.1); Platelet Count Result 156 k/mm3 (150-375); Red Blood Count 4.42 M/mm3 (4.6-6.20); Red Cell Distribution Width 11.1 % (11.5-14.5); White Blood Count 5.8 K/mm3 (4.5-10.0)
[2024-12-05 04:54] LABS: Alanine Aminotransferase 10 U/L (6-50); Albumin Level 3.5 g/dL (3.5-5.1); Alkaline Phosphatase 53 U/L (38-126); Anion Gap 5 mmol/L (4-12); Aspartate Amino Transferase 15 U/L (17-59); Blood Urea Nitrogen 19 mg/dL (9-20); Calcium 8.5 mg/dL (8.4-10.2); Carbon Dioxide 30 mmol/L (22-30); Chloride 102 mmol/L (98-107); Estimated CRCL calculation 74 ml/min; Estimated Glomerular Filt Rate > 60; Glucose 90 mg/dL (65-110); Magnesium 2.1 mg/dL (1.6-2.3); Potassium 4.1 mmol/L (3.4-5.0); Sodium 137 mmol/L (137-145)
[2024-12-05] MEDS: LEVOTHYROXINE SODIUM 125 MCG TABLET PO (06:08)
--- NOTE | 2024-12-05 07:34 | P.PNCA_ITS ---
Progress Note: A&P Assessment and Plan (1) CAD (coronary artery disease): Code(s): I25.10 - Atherosclerotic heart disease of [place] coronary artery without angina pectoris Status: Acute (2) Chest pain at rest: Code(s): R07.9 - Chest pain, unspecified Status: Acute (3) Hyperlipidemia: Code(s): E78.5 - Hyperlipidemia, unspecified Status: Acute (4) Pericarditis: Code(s): I31.9 - Disease of pericardium, unspecified Status: Acute Plan Assessment: Chest pain most likely secondary to acute pericarditis (pain worse with laying flat and improves with leaning forward); troponin x3 negative; EKG shows sinus rhythm with ST elevation suggestive of early repolarization and these changes are present on old EKGs; TTE shows normal LVEF and no regional wall motion abnormalities- ACS ruled out; patient having chest pressure this morning of intensity 3 to 4/10, hypotensive with systolic blood pressure in the 90s, heart rate in the 50s to 60s Known CAD, history of [place]-prior cardiac catheterization per patient showed a lesion of 40% in unknown vessel Hyperlipidemia Seizure disorder Hypothyroid Plan: Repeat EKG Check another troponin Given patient's known history of CAD, chest pressure this morning, recommend rule out CAD as cause of patient's symptoms. Will plan for cardiac catheterization today. Patient ate at around 8 a.m. Will need 6 hours of NPO for catheterization Continue aspirin 81 mg daily Start statin If no contraindication then give high-dose NSAIDs for pericarditis-can give ibuprofen 800 mg t.i.d. for 1 week Continue colchicine Management of other noncardiac medical problems per primary team Subjective Date/time seen: 12/05/24 07:34 Interval history: Reason For Visit: Chest pain most likely secondary to pericarditis HPI: 59-year-old male with past medical history of CAD, hyperlipidemia, rheuma tic fever, neurofibromatosis, hypothyroid, epileptic seizure presented with sharp left-sided chest pain for 1 day that increased with laying flat decreased by leaning forwards suggestive of pericarditis. No anginal chest pain. EKG at presentation showed sinus rhythm and ST elevation in inferior leads suspicious for acute [place] and Cardiology was consulted further management. Review of older EKGs showed similar ST changes suggestive of early repolarization and acute [place] was ruled out. Troponin x3 negative. Interval history: Patient states that he felt dizzy this morning while in the bathroom and felt like he may fall. He complains of chest pressure of intensity 3 to 4/10. He is hypotensive with systolic blood pressure in the 90s. His heart rate is in the 50s to 60s. No shortness of breath, dizziness, palpitations, nausea, emesis, abdominal pain. Review of Systems Review of Systems: A complete review of systems was performed and negative other than those mentioned in HPI Exam Narrative: General: Alert oriented x3, no acute distress Neck: Supple, no JVD Chest: Bilaterally clear to auscultation, no rales or rhonchi Cardiac: S1, S2 +, regular rate, regular rhythm, no murmurs or rubs Extremities: No pedal edema, no skin rash Neurologic: Alert and oriented x3, no focal neurological deficits Objective Data Vital Signs Vital Signs: Vital Signs - 24 hr 12/04/24 08:00 12/04/24 08:08 12/04/24 10:00 Temperature 36.8 C Pulse Rate 54 L 56 L 58 L Respiratory Rate 18 Blood Pressure 96/60 L Pulse Oximetry 99 Oxygen Delivery 12/04/24 11:35 12/04/24 12:00 12/04/24 16:00 Temperature 36.7 C Pulse Rate 57 L 61 59 L Respiratory Rate 18 Blood Pressure 95/66 L Pulse Oximetry 98 Oxygen Delivery 12/04/24 16:37 12/04/24 18:00 12/04/24 20:00 Temperature 36.8 C 37.1 C Pulse Rate 57 L 57 L 57 L Respiratory Rate 18 18 Blood Pressure 88/54 L 95/63 L Pulse Oximetry 97 98 Oxygen Delivery 12/04/24 20:00 12/04/24 20:00 12/04/24 22:00 Temperature Pulse Rate 59 L 54 L Respiratory Rate Blood Pressure Pulse Oximetry Oxygen Delivery Room Air 12/05/24 00:00 12/05/24 00:00 12/05/24 00:00 Temperature 36.6 C Pulse Rate 58 L 58 L Respiratory Rate 18 Blood Pressure 94/63 L Pulse Oximetry 97 Oxygen Delivery Room Air 12/05/24 02:00 12/05/24 04:00 12/05/24 04:00 Temperature Pulse Rate 54 L 56 L Respiratory Rate Blood Pressure Pulse Oximetry Oxygen Delivery Room Air 12/05/24 04:09 12/05/24 06:00 Temperature 36.7 C Pulse Rate 60 58 L Respiratory Rate 18 Blood Pressure 94/54 L Pulse Oximetry 98 Oxygen Delivery Intake/Output Intake/Output: Intake & Output 12/02/24 12/03/24 12/04/24 12/05/24 23:59 23:59 23:59 23:59 Intake Total 740 300 Balance 740 300 Meds/Results Medications: Active Medications Generic Name Dose Route Start Last Admin Trade Name Freq PRN Reason Stop Dose Admin Acetaminophen 650 mg 12/03/24 19:33 Acetaminophen 325 Mg Tablet PO Q4H PRN Mild Pain (1-3) or Fever Hydrocodone Bitart/Acetaminophen 1 tab 12/04/24 03:23 12/04/24 20:52 Hydrocodone/Acetaminophen (*Crx) 5-325 Mg Tablet PO 1 tab Q6H PRN Administration Pain Rated 4-6 Aspirin 81 mg 12/04/24 08:00 12/04/24 08:18 Aspirin 81 Mg Chewable Tablet PO 81 mg DAILY@0800 KRISTA Administration Colchicine 0.6 mg 12/04/24 10:20 12/04/24 20:49 Colchicine 0.6 Mg Tablet PO 0.6 mg Q12HR KRISTA Administration Enoxaparin Sodium 40 mg 12/04/24 09:00 12/04/24 12:22 Enoxaparin 40 Mg/0.4 Ml Syringe SUB-Q 40 mg DAILY KRISTA Administration Gabapentin 300 mg 12/04/24 09:00 12/04/24 08:18 Gabapentin 300 Mg Capsule PO 300 mg DAILY KRISTA Administration Levetiracetam 500 mg 12/04/24 09:00 12/04/24 20:49 Levetiracetam 500 Mg Tablet PO 500 mg Q12HR KRISTA Administration Levothyroxine Sodium 125 mcg 12/04/24 06:30 12/05/24 06:08 Levothyroxine Sodium 125 Mcg Tablet PO 125 mcg DAILY@0630 KRISTA Administration Morphine Sulfate 2 mg 12/04/24 03:23 Morphine Sulfate (*Crx) 2 Mg/Ml Inj IV PUSH Q4H PRN Pain Rated 7-10 Perflutren Lipid Microsphere 0 ml 12/04/24 10:08 Perflutren Lipid Microspheres 1.5 Ml Vial Diluted To 10 Ml Total Volume IV PUSH 12/07/24 10:08 ONCE PRN adequate visualization Protocol Rosuvastatin Calcium 20 mg 12/04/24 09:00 12/04/24 08:18 Rosuvastatin 20 Mg Tablet PO 20 mg QAM KRISTA Administration Radiology Results: ITS Impressions Chest X-Ray 12/03/24 19:15 IMPRESSION: No focal infiltrate or effusion. Chest CTA 12/03/24 20:05 IMPRESSION: No pulmonary embolus. No aortic dissection or aneurysmal dilatation. The lungs are clear. Labs Labs: Laboratory Results - last 24 hr 12/05/24 04:14 WBC 5.8 RBC 4.42 L Hgb 13.9 L Hct 43.7 MCV 98.9 MCH 31.4 MCHC 31.8 L RDW 11.1 L Plt Count 156 MPV 10.7 H Immature Gran % (Auto) 0.3 Neut % (Auto) 62.5 Lymph % (Auto) 25.1 [place] % (Auto) 9.1 H Eos % (Auto) 2.1 Baso % (Auto) 0.9 Lymph # (Auto) 1.46 [place] # (Auto) 0.5 Eos # (Auto) 0.1 Baso # (Auto) 0.1 Abs Immat Gran (auto) 0.02 Absolute Neuts (auto) 3.6 Absolute Nucleated RBC 0.000 Nucleated RBC % 0.0 Sodium 137 Potassium 4.1 Chloride 102 Carbon Dioxide 30 Anion Gap 5 BUN 19 Creatinine 0.93 Estim Creat Clear Calc 74 Estimated GFR > 60 Glucose 90 Calcium 8.5 Magnesium 2.1 Total Bilirubin 1.0 AST 15 L ALT 10 Alkaline Phosphatase 53 Total Protein 6.0 L Albumin 3.5
[2024-12-05] MEDS: ROSUVASTATIN 20 MG TABLET PO (08:32)
[2024-12-05] MEDS: GABAPENTIN 300 MG CAPSULE PO (08:33)
[2024-12-05] MEDS: ASPIRIN 81 MG CHEWABLE TABLET PO (08:33)
[2024-12-05] MEDS: COLCHICINE 0.6 MG TABLET PO ×2 (08:33→21:37)
[2024-12-05] MEDS: levETIRAcetam 500 MG TABLET PO ×2 (08:33→21:37)
[2024-12-05] MEDS: ENOXAPARIN 40 MG/0.4 ML SYRINGE SUB-Q (08:33)
--- NOTE | 2024-12-05 09:59 | ECG_ITS ---
Test Date: 2024-12-05 10:14:12 Measurements Intervals Bode Rate: 62 P: -6 NE: 148 QRS: 14 QRSD: 85 T: 54 QT: 393 QTc: 401 Interpretive Statements SINUS RHYTHM EARLY REPOLARIZATION [ST ELEVATION WITH NORMALLY INFLECTED T-WAVE] Compared to ECG 12/04/2024 08:50:40 Sinus bradycardia no longer present Electronically Signed On 12-05-2024 12:55:41 DENTAL COORDINATOR by Ko Gonzalez M.D.
--- NOTE | 2024-12-05 10:46 | PM.IMPN ---
Progress Note: A&P Assessment and Plan (1) Chest pain: Code(s): R07.9 - Chest pain, unspecified Status: Acute (2) CAD (coronary artery disease): Code(s): I25.10 - Atherosclerotic heart disease of [place] coronary artery without angina pectoris Status: Acute (3) Chronic back pain: Code(s): M54.9 - Dorsalgia, unspecified; G89.29 - Other chronic pain Status: Acute (4) Hyperlipidemia: Code(s): E78.5 - Hyperlipidemia, unspecified Status: Acute (5) History of seizure disorder: Code(s): Z86.69 - Personal history of other diseases of the nervous system and sense organs Status: Acute (6) Hypothyroidism: Code(s): E03.9 - Hypothyroidism, unspecified Status: Acute Plan Patient reported chest pain earlier today. Presented with chest pain that started approximately 3 4:00 a.m. in the evening also had cough for past 2 weeks. Associated shortness of breath and pain in the center of his back. History of STEMI at age 39 takes aspirin every day. Sick contact with father having pneumonia 2 weeks ago. EKG on arrival showed ST-elevation in inferior leads STEMI was called. Cardiology was consulted and EKG was reviewed with the older EKG in 2019 which looked exactly the same. Suspected early repolarization changes. STEMI call was canceled. Laboratory workup revealed normal WBC of 7.6 hemoglobin 15.5 Chem panel was unremarkable. Troponin was negative less than 0.012. Lipase was normal at 138. Chest x-ray showed no focal infiltrate or effusion. Serial troponin was performed which remained negative x3. In fact markers were not negative as well. Cardiology suspect pericarditis. CTA chest was performed which was negative for PE aortic dissection. Lungs were clear. Cardiology evaluated. Echocardiogram normal EF with no wall motion abnormality. Started on colchicine. Also add ibuprofen. Hypertension mild with no symptoms. Will monitor if remains stable plan to DC home Continue on aspirin. No seizure disorder continue Keppra Hypothyroidism levothyroxine Hyperlipidemia lipid panel with elevated cholesterol and elevated LDL initiated statin therapy. History of STEMI in the past with no stents in the past. History of neurofibromatosis Subjective Date/time seen: 12/05/24 10:46 Interval history: Patient mildly hypertensive. Denies any dizziness or lightheadedness. Wants to go home. No further chest pain. Review of Systems Review of Systems: All systems reviewed & are unremarkable except as noted in HPI and below Exam Narrative: GENERAL APPEARANCE: WELL-DEVELOPED, WELL-NOURISHED SKIN: WARM AND DRY HEAD: NORMOCEPHALIC, NONTRAUMATIC EYES: CLEAR CONJUNCTIVA NECK: SUPPLE, NONTENDER CHEST AND RESPIRATORY: AIRWAY PATENT, NO RESPIRATORY DISTRESS, NO ACCESSORY MUSCLE USE HEART: REGULAR RATE/RHYTHM ABDOMEN: SOFT, NONTENDER, NO ORGANOMEGALY, QUIET BOWEL SOUNDS VASCULAR: NORMAL PERIPHERAL PULSES, NORMAL CAPILLARY REFILL. MUSCULOSKELETAL: NORMAL RANGE OF MOTION, NONTENDER BACK NEUROLOGIC: ALERT AND ORIENTED ?3, NO GROSS MOTOR DEFICIT Objective Data Vital Signs Vital Signs: Vital Signs - 24 hr 12/04/24 11:35 12/04/24 12:00 12/04/24 16:00 Temperature 98.1 F Pulse Rate 57 L 61 59 L Respiratory Rate 18 Blood Pressure 95/66 L Pulse Oximetry 98 Oxygen Delivery 12/04/24 16:37 12/04/24 18:00 12/04/24 20:00 Temperature 98.3 F 98.7 F Pulse Rate 57 L 57 L 57 L Respiratory Rate 18 18 Blood Pressure 88/54 L 95/63 L Pulse Oximetry 97 98 Oxygen Delivery 12/04/24 20:00 12/04/24 20:00 12/04/24 22:00 Temperature Pulse Rate 59 L 54 L Respiratory Rate Blood Pressure Pulse Oximetry Oxygen Delivery Room Air 12/05/24 00:00 12/05/24 00:00 12/05/24 00:00 Temperature 97.8 F Pulse Rate 58 L 58 L Respiratory Rate 18 Blood Pressure 94/63 L Pulse Oximetry 97 Oxygen Delivery Room Air 12/05/24 02:00 12/05/24 04:00 12/05/24 04:00 Temperature Pulse Rate 54 L 56 L Respiratory Rate Blood Pressure Pulse Oximetry Oxygen Delivery Room Air 12/05/24 04:09 12/05/24 06:00 12/05/24 08:00 Temperature 98.0 F Pulse Rate 60 58 L 58 L Respiratory Rate 18 18 Blood Pressure 94/54 L Pulse Oximetry 98 97 Oxygen Delivery Room Air 12/05/24 08:00 12/05/24 08:16 12/05/24 10:00 Temperature 98.6 F Pulse Rate 58 L 58 L 59 L Respiratory Rate 18 Blood Pressure 95/59 L Pulse Oximetry 97 Oxygen Delivery Intake/Output Intake/Output: Intake & Output 12/02/24 12/03/24 12/04/24 12/05/24 23:59 23:59 23:59 23:59 Intake Total 740 360 Balance 740 360 Meds/Results Medications: Active Medications Generic Name Dose Route Start Last Admin Trade Name Freq PRN Reason Stop Dose Admin Acetaminophen 650 mg 12/03/24 19:33 Acetaminophen 325 Mg Tablet PO Q4H PRN Mild Pain (1-3) or Fever Hydrocodone Bitart/Acetaminophen 1 tab 12/04/24 03:23 12/04/24 20:52 Hydrocodone/Acetaminophen (*Crx) 5-325 Mg Tablet PO 1 tab Q6H PRN Administration Pain Rated 4-6 Aspirin 81 mg 12/04/24 08:00 12/05/24 08:33 Aspirin 81 Mg Chewable Tablet PO 81 mg DAILY@0800 KRISTA Administration Colchicine 0.6 mg 12/04/24 10:20 12/05/24 08:33 Colchicine 0.6 Mg Tablet PO 0.6 mg Q12HR KRISTA Administration Enoxaparin Sodium 40 mg 12/04/24 09:00 12/05/24 08:33 Enoxaparin 40 Mg/0.4 Ml Syringe SUB-Q 40 mg DAILY KRISTA Administration Gabapentin 300 mg 12/04/24 09:00 12/05/24 08:33 Gabapentin 300 Mg Capsule PO 300 mg DAILY KRISTA Administration Levetiracetam 500 mg 12/04/24 09:00 12/05/24 08:33 Levetiracetam 500 Mg Tablet PO 500 mg Q12HR KRISTA Administration Levothyroxine Sodium 125 mcg 12/04/24 06:30 12/05/24 06:08 Levothyroxine Sodium 125 Mcg Tablet PO 125 mcg DAILY@0630 KRISTA Administration Morphine Sulfate 2 mg 12/04/24 03:23 Morphine Sulfate (*Crx) 2 Mg/Ml Inj IV PUSH Q4H PRN Pain Rated 7-10 Perflutren Lipid Microsphere 0 ml 12/04/24 10:08 Perflutren Lipid Microspheres 1.5 Ml Vial Diluted To 10 Ml Total Volume IV PUSH 12/07/24 10:08 ONCE PRN adequate visualization Protocol Rosuvastatin Calcium 20 mg 12/04/24 09:00 12/05/24 08:32 Rosuvastatin 20 Mg Tablet PO 20 mg QAM KRISTA Administration Radiology Results: ITS Impressions Chest X-Ray 12/03/24 19:15 IMPRESSION: No focal infiltrate or effusion. Chest CTA 12/03/24 20:05 IMPRESSION: No pulmonary embolus. No aortic dissection or aneurysmal dilatation. The lungs are clear. Labs Labs: Laboratory Results - last 24 hr 12/05/24 04:14 WBC 5.8 RBC 4.42 L Hgb 13.9 L Hct 43.7 MCV 98.9 MCH 31.4 MCHC 31.8 L RDW 11.1 L Plt Count 156 MPV 10.7 H Immature Gran % (Auto) 0.3 Neut % (Auto) 62.5 Lymph % (Auto) 25.1 [place] % (Auto) 9.1 H Eos % (Auto) 2.1 Baso % (Auto) 0.9 Lymph # (Auto) 1.46 [place] # (Auto) 0.5 Eos # (Auto) 0.1 Baso # (Auto) 0.1 Abs Immat Gran (auto) 0.02 Absolute Neuts (auto) 3.6 Absolute Nucleated RBC 0.000 Nucleated RBC % 0.0 Sodium 137 Potassium 4.1 Chloride 102 Carbon Dioxide 30 Anion Gap 5 BUN 19 Creatinine 0.93 Estim Creat Clear Calc 74 Estimated GFR > 60 Glucose 90 Calcium 8.5 Magnesium 2.1 Total Bilirubin 1.0 AST 15 L ALT 10 Alkaline Phosphatase 53 Total Protein 6.0 L Albumin 3.5
[2024-12-05 10:56] LABS: Troponin I < 0.012 ng/mL (0.000-0.034)
[2024-12-05] MEDS: IBUPROFEN 400 MG TABLET 800 MG PO ×2 (12:00→18:08)
--- NOTE | 2024-12-05 16:21 | WPDMODSED ---
Moderate Sedation Note-Pt Data Patient Data Allergies Allergy/AdvReac Type Severity Reaction Status Date / Time Penicillins AdvReac Intermediate Rash Verified 12/03/24 18:54 Home Medications ?Medication ?Instructions ?Recorded ?Confirmed ?Type aspirin 81 mg tablet 81 mg PO DAILY 10/09/20 12/03/24 History levothyroxine 125 mcg tablet 125 mcg PO DAILY 10/09/20 12/03/24 History levetiracetam 500 mg tablet 500 mg PO Q12HR #60 tabs 10/10/20 12/03/24 Rx (Keppra) gabapentin 300 mg capsule 300 mg PO DAILY 12/03/24 12/03/24 History Current Medications: Active Medications Acetaminophen (Acetaminophen 325 Mg Tablet) 650 mg PO Q4H PRN PRN Reason: Mild Pain (1-3) or Fever Hydrocodone Bitart/Acetaminophen (Hydrocodone/Acetaminophen (*Crx) 5-325 Mg Tablet) 1 tab PO Q6H PRN PRN Reason: Pain Rated 4-6 Last Admin: 12/04/24 20:52 Dose: 1 tab Aspirin (Aspirin 81 Mg Chewable Tablet) 81 mg PO DAILY@0800 [facility] Last Admin: 12/05/24 08:33 Dose: 81 mg Colchicine (Colchicine 0.6 Mg Tablet) 0.6 mg PO Q12HR [facility] Last Admin: 12/05/24 08:33 Dose: 0.6 mg Enoxaparin Sodium (Enoxaparin 40 Mg/0.4 Ml Syringe) 40 mg SUB-Q DAILY [facility] Last Admin: 12/05/24 08:33 Dose: 40 mg Gabapentin (Gabapentin 300 Mg Capsule) 300 mg PO DAILY [facility] Last Admin: 12/05/24 08:33 Dose: 300 mg Ibuprofen (Ibuprofen 400 Mg Tablet) 800 mg PO Q8H [facility] Levetiracetam (Levetiracetam 500 Mg Tablet) 500 mg PO Q12HR [facility] Last Admin: 12/05/24 08:33 Dose: 500 mg Levothyroxine Sodium (Levothyroxine Sodium 125 Mcg Tablet) 125 mcg PO DAILY@0630 [facility] Last Admin: 12/05/24 06:08 Dose: 125 mcg Morphine Sulfate (Morphine Sulfate (*Crx) 2 Mg/Ml Inj) 2 mg IV PUSH Q4H PRN PRN Reason: Pain Rated 7-10 Perflutren Lipid Microsphere (Perflutren Lipid Microspheres 1.5 Ml Vial Diluted To 10 Ml Total Volume) 0 ml IV PUSH ONCE PRN; Protocol PRN Reason: adequate visualization Stop: 12/07/24 10:08 Rosuvastatin Calcium (Rosuvastatin 20 Mg Tablet) 20 mg PO QAM [facility] Last Admin: 12/05/24 08:32 Dose: 20 mg Sedation/Anesthesia: No previous sedation/anesthesia problems (including family history). [facility] Past Medical History Medical History Rheumatic fever with murmur Hypothyroidism CAD (coronary artery disease) Hx of GA when 39yo Neurofibromatosis Surgical History Surgical History History of dental surgery Hx of appendectomy Family History Family History Mother Heart disease Sibling Heart disease Social History Social History Social History: Patient lives at home with his . He has 4 children who live outside the home. No pets. Drinks 1 alcoholic drink every 2-3 weeks. No tobacco use. Lifelong nonsmoker. No history of drug use. He is a full code. He nominates his to be the individual would make medical decisions for him if he is not able. Smoking status: Never smoker Alcohol intake: never Substance use: never Do You Feel Safe in your Home?: Yes Lack of Transportation: No Lack of Food: Never True Current Housing: I Have Housing Concerned About Future Housing: No Difficulty Paying Gas/Electric Bills: No Difficulty Paying for Meds: No Currently Unemployed: No Education: High School Diploma/GED Difficulty w/ Childcare or Family Care: No Gender identity (if verbalized by the patient): Male Spiritual care concerns: No Mod Sed Physical Exam Physical Exam Pre Procedural Exam: Normal: Lungs, Heart Rate and Heart Rhythm Hours since solid foods: 6 Hours since liquid intake: 6 Mallampati Classification: class II Internal Medicine - PN: Obj Da Vital Signs Vital Signs: Vital Signs - 24 hr 12/04/24 16:37 12/04/24 18:00 12/04/24 20:00 Temperature 36.8 C 37.1 C Pulse Rate 57 L 57 L 57 L Respiratory Rate 18 18 Blood Pressure 88/54 L 95/63 L Pulse Oximetry 97 98 Oxygen Delivery 12/04/24 20:00 12/04/24 20:00 12/04/24 22:00 Temperature Pulse Rate 59 L 54 L Respiratory Rate Blood Pressure Pulse Oximetry Oxygen Delivery Room Air 12/05/24 00:00 12/05/24 00:00 12/05/24 00:00 Temperature 36.6 C Pulse Rate 58 L 58 L Respiratory Rate 18 Blood Pressure 94/63 L Pulse Oximetry 97 Oxygen Delivery Room Air 12/05/24 02:00 12/05/24 04:00 12/05/24 04:00 Temperature Pulse Rate 54 L 56 L Respiratory Rate Blood Pressure Pulse Oximetry Oxygen Delivery Room Air 12/05/24 04:09 12/05/24 06:00 12/05/24 08:00 Temperature 36.7 C Pulse Rate 60 58 L 58 L Respiratory Rate 18 18 Blood Pressure 94/54 L Pulse Oximetry 98 97 Oxygen Delivery Room Air 12/05/24 08:00 12/05/24 08:16 12/05/24 10:00 Temperature 37.0 C Pulse Rate 58 L 58 L 59 L Respiratory Rate 18 Blood Pressure 95/59 L Pulse Oximetry 97 Oxygen Delivery 12/05/24 11:52 12/05/24 12:00 12/05/24 12:00 Temperature 36.7 C Pulse Rate 61 61 61 Respiratory Rate 18 18 Blood Pressure 98/68 L Pulse Oximetry 97 97 Oxygen Delivery Room Air 12/05/24 12:23 12/05/24 16:00 12/05/24 16:00 Temperature Pulse Rate 61 61 61 Respiratory Rate 18 Blood Pressure Pulse Oximetry 97 Oxygen Delivery Room Air Intake/Output Intake/Output: Intake & Output 12/02/24 12/03/24 12/04/24 12/05/24 23:59 23:59 23:59 23:59 Intake Total 740 360 Balance 740 360 Meds/Results Medications: Active Medications Generic Name Dose Route Start Last Admin Trade Name Freq PRN Reason Stop Dose Admin Acetaminophen 650 mg 12/03/24 19:33 Acetaminophen 325 Mg Tablet PO Q4H PRN Mild Pain (1-3) or Fever Hydrocodone Bitart/Acetaminophen 1 tab 12/04/24 03:23 12/04/24 20:52 Hydrocodone/Acetaminophen (*Crx) 5-325 Mg Tablet PO 1 tab Q6H PRN Administration Pain Rated 4-6 Aspirin 81 mg 12/04/24 08:00 12/05/24 08:33 Aspirin 81 Mg Chewable Tablet PO 81 mg DAILY@0800 [facility] Administration Colchicine 0.6 mg 12/04/24 10:20 12/05/24 08:33 Colchicine 0.6 Mg Tablet PO 0.6 mg Q12HR [facility] Administration Enoxaparin Sodium 40 mg 12/04/24 09:00 12/05/24 08:33 Enoxaparin 40 Mg/0.4 Ml Syringe SUB-Q 40 mg DAILY [facility] Administration Gabapentin 300 mg 12/04/24 09:00 12/05/24 08:33 Gabapentin 300 Mg Capsule PO 300 mg DAILY [facility] Administration Ibuprofen 800 mg 12/05/24 10:50 Ibuprofen 400 Mg Tablet PO Q8H [facility] Levetiracetam 500 mg 12/04/24 09:00 12/05/24 08:33 Levetiracetam 500 Mg Tablet PO 500 mg Q12HR [facility] Administration Levothyroxine Sodium 125 mcg 12/04/24 06:30 12/05/24 06:08 Levothyroxine Sodium 125 Mcg Tablet PO 125 mcg DAILY@0630 [facility] Administration Morphine Sulfate 2 mg 12/04/24 03:23 Morphine Sulfate (*Crx) 2 Mg/Ml Inj IV PUSH Q4H PRN Pain Rated 7-10 Perflutren Lipid Microsphere 0 ml 12/04/24 10:08 Perflutren Lipid Microspheres 1.5 Ml Vial Diluted To 10 Ml Total Volume IV PUSH 12/07/24 10:08 ONCE PRN adequate visualization Protocol Rosuvastatin Calcium 20 mg 12/04/24 09:00 12/05/24 08:32 Rosuvastatin 20 Mg Tablet PO 20 mg QAM [facility] Administration Radiology Results: ITS Impressions Chest X-Ray 12/03/24 19:15 IMPRESSION: No focal infiltrate or effusion. Chest CTA 12/03/24 20:05 IMPRESSION: No pulmonary embolus. No aortic dissection or aneurysmal dilatation. The lungs are clear. Labs 12/05/24 04:14 12/05/24 04:14 Labs: Laboratory Results - last 24 hr 12/05/24 12/05/24 04:14 10:12 WBC 5.8 RBC 4.42 L Hgb 13.9 L Hct 43.7 MCV 98.9 MCH 31.4 MCHC 31.8 L RDW 11.1 L Plt Count 156 MPV 10.7 H Immature Gran % (Auto) 0.3 Neut % (Auto) 62.5 Lymph % (Auto) 25.1 [place] % (Auto) 9.1 H Eos % (Auto) 2.1 Baso % (Auto) 0.9 Lymph # (Auto) 1.46 [place] # (Auto) 0.5 Eos # (Auto) 0.1 Baso # (Auto) 0.1 Abs Immat Gran (auto) 0.02 Absolute Neuts (auto) 3.6 Absolute Nucleated RBC 0.000 Nucleated RBC % 0.0 Sodium 137 Potassium 4.1 Chloride 102 Carbon Dioxide 30 Anion Gap 5 BUN 19 Creatinine 0.93 Estim Creat Clear Calc 74 Estimated GFR > 60 Glucose 90 Calcium 8.5 Magnesium 2.1 Total Bilirubin 1.0 AST 15 L ALT 10 Alkaline Phosphatase 53 Troponin I < 0.012 Total Protein 6.0 L Albumin 3.5 ASA Classification/Sedation ASA Classification/Sedation ASA Class: III Emergent: No Risks: Risks, benefits and alternatives explained and patient/family accepted plan for sedation. Patient re-evaluated immediately prior to sedation.
--- NOTE | 2024-12-05 16:23 | WPDHPUPDATE1 ---
History and Physical Update Update Date/Time: 12/05/24 16:23 History and Physical has been reviewed, including an updated exam of the patient. There are following changes in the patient's condition: chest pressure off and on of intensity 6/10 since this morning. This is associated with diaphoresis. He is hypotensive with SBP in the 80s-90s this morning and felt like he would pass out in the bathroom. His HR is in the 50 at times. Risks, benefits, and alternatives have been discussed and questions answered. Patient agrees to proceed with procedure.
--- NOTE | 2024-12-05 18:23 | P.PCNCC_ITS ---
Cardiac Cath Procedure Note Date of procedure:: 12/05/24 Performing physician:: Chelsey Birmingham MD Indication:: Chest pain at rest, hypotension Brief clinical history:: 59 year old male patient with past medical history of CAD, hyperlipidemia, rheumatic fever, neurofibromatosis, hypothyroid, epileptic seizure presented with sharp left-sided chest pain for 1 day that increased with laying flat decreased by leaning forwards suggestive of pericarditis. EKG at presentation showed sinus rhythm and ST elevation in inferior leads suspicious for acute PR and Cardiology was consulted further management. Review of older EKGs showed similar ST changes suggestive of early repolarization and acute PR was ruled out. Troponin x3 negative. Patient had chest pressure this morning which is new compared to the pain he presented with. He was hypotensive with SBP in the 80s and he felt dizzy when he was in the bathroom. His HR was in the 50s. Given new change in symptoms, it was decided to proceed with a cardiac cath to evaluate coronary ischemia as cause of his symptoms. Procedure Procedure performed:: Right radial access Left heart catheterization Selective left and right coronary angiography Sedation/Medication given:: Versed 1mg Fentanyl 100mcg Sedation start time: 17:21 Sedation end time: 17:37 Total sedation monitoring time: 16min Procedure note:: Hemodynamic data: Opening aortic pressure: 84/56mmHg Closing aortic pressure: 84/59mmHg LVEDP: 5mmHg Procedure technique: After informed consent was obtained, the patient was brought to the cardiac confectionery laboratory manager and was placed in the supine position. Access site was prepped and draped in usual sterile manner. Right radial access was obtained using modified Seldinger technique. Six [place] sheath was inserted in the right radial artery. 200mg of nitroglycerin was administered through the radial sheath. 5000units of IV heparin were administered after crossing the arch with a J-wire. We started 1st with coronary angiography. Selective right coronary angiography was performed in a standard fashion using diagnostic JR 4 catheter. The JR4 catheter was used to cross into the LV over a J-wire and LVEDP was obtained. The JR4 catheter was removed from the body. Selective left coronary angiography was performed in a standard fashion using diagnostic JL3.5 diagnostic catheter. The JL3.5. catheter was removed from the body. Patient tolerated the procedure well without any complications. Radial artery sheath was removed from the body. TR band was applied to the radial access site. Catheters used for selective coronary angiograms: Six [place] JL 3.5 diagnostic catheter Six [place] JR4 diagnostic catheter Findings:: 1. The left main coronary artery arises from the left coronary cusp and divides into the left anterior descending and left circumflex. It is free of angiographic disease. 2. The left anterior descending artery arises from the left main and gives off multiple diagonals. It is free of angiographic disease. There is slow flow in the LAD which improved with angiography. The BP at the time of this slow flow was in the 80s and hence nitro could not be administered. 3. The left circumflex artery arises from the left main and is a non dominant artery. It is free of angiographic disease. 4. RCA is a large vessel and dominant which bifurcates into the RPDA and RPLA. It is free of angiographic disease. Conclusion:: Normal coronaries Slow flow in LAD improved with angiography Assessment and Plan Assessment and plan (1) Unstable angina: Code(s): I20.0 - Unstable angina Status: Acute (2) Pericarditis: Code(s): I31.9 - Disease of pericardium, unspecified Status: Acute (3) Hyperlipidemia: Code(s): E78.5 - Hyperlipidemia, unspecified Status: Acute Plan -Chest pain suspected to be unstable angina given onset at rest this morning. Based on cardiac cath findings, this pain is most likely secondary to slow flow in the LAD which may be secondary to hypotension; pericarditis is also on the differential due to nature of the chest pain which improves with bending forward and worse with leaning back -Low LVEDP of 5mmHg -Hypotension -Hyperlipidemia Plan: -Recommend IV fluids normal saline as LVEDP is low and patient has hypotension. Increasing BP could will coronary perfusion pressure and improve the slow flow in the LAD -Hold all blood pressure lowering medications for now -Continue aspirin 81 mg daily -If no contraindication then give high-dose NSAIDs for pericarditis-can give ibuprofen 800 mg t.i.d. for 1 week -Continue colchicine -Management of other noncardiac medical problems per primary team
[2024-12-05] MEDS: HYDROcodone/acetaminophen (*CRX) 5-325 MG TABLET 1 TAB PO (18:31)
[2024-12-05] MEDS: SODIUM CHLORIDE 0.9% IV 1,000 ML 125 ML IV CONT (18:32)
--- NOTE | 2024-12-05 19:00 | ECG_ITS ---
Test Date: 2024-12-05 19:05:01 Measurements Intervals [place] Rate: 58 P: -1 NC: 157 QRS: 26 QRSD: 85 T: 48 QT: 412 QTc: 407 Interpretive Statements SINUS BRADYCARDIA EARLY REPOLARIZATION [ST ELEVATION WITH NORMALLY INFLECTED T WAVE] Compared to ECG 12/05/2024 10:14:12 Sinus rhythm no longer present Electronically Signed On 12-05-2024 21:24:02 SHEAR GRINDER OPERATOR HELPER by Ko Gonzalez M.D.
--- NOTE | 2024-12-05 21:40 | PC.NURSE ---
This patient, Wai Ramírez, was transferred to [facility] on 12/05/24 at 2140. Personal belongings sent with patient. Report given to Ana BLACKWELL. Appropriate documentation sent with patient.
--- NOTE | 2024-12-05 22:22 | PC.NURSE ---
This patient, Wai Ramírez, was received from ICU 11 on 12/05/24 at 2130. Patient/family oriented to unit policies and routines. Report received from Beckie BLACKWELL
[2024-12-06] VITALS (19 sets, daily range): BP systolic 97–103; BP diastolic 55–68; PULSE 53–64; RESP 12–18; TEMP 36.5–37.1; O2SAT 62–100
[2024-12-06] MEDS: IBUPROFEN 400 MG TABLET 800 MG PO ×3 (02:04→17:43)
[2024-12-06] MEDS: LEVOTHYROXINE SODIUM 125 MCG TABLET PO (05:11)
[2024-12-06 05:36] LABS: Basophils Percent Auto 0.5 % (0.2-1.2); Eosinophils Absolute Auto 0.1 K/mm3 (0-0.3); Eosinophils Percent Auto 1.6 % (0-4.4); Hematocrit 41.9 % (42.0-52.0); Hemoglobin 13.6 g/dL (14.0-18.0); Immature Granulocyte Absolute 0.01 K/mm3 (0.00-0.031); Immature Granulocyte Percent A 0.2 % (0-0.5); Lymphocytes Percent Auto 19.8 % (18.3-44.2); Mean Corpuscular HGB Conc 32.5 g/dl (32-36); Mean Corpuscular Hemoglobin 31.4 pg (26-34); Mean Corpuscular Volume 96.8 fl (80-100); Mean Platelet Volume 10.9 fl (7.4-10.4); Monocytes Absolute Auto 0.5 K/mm3 (0.1-0.6); Monocytes Percent Auto 8.5 % (2.6-8.5); Neutrophils Absolute Auto 3.9 K/mm3 (1.3-6.7); Neutrophils Percent Auto 69.4 % (45.5-73.1); Platelet Count Result 155 k/mm3 (150-375); Red Blood Count 4.33 M/mm3 (4.6-6.20); Red Cell Distribution Width 11.1 % (11.5-14.5); White Blood Count 5.6 K/mm3 (4.5-10.0)
[2024-12-06 05:49] LABS: Alanine Aminotransferase 11 U/L (6-50); Albumin Level 3.2 g/dL (3.5-5.1); Alkaline Phosphatase 49 U/L (38-126); Anion Gap 6 mmol/L (4-12); Aspartate Amino Transferase 25 U/L (17-59); Blood Urea Nitrogen 22 mg/dL (9-20); Calcium 8.2 mg/dL (8.4-10.2); Carbon Dioxide 26 mmol/L (22-30); Chloride 106 mmol/L (98-107); Estimated CRCL calculation 76 ml/min; Estimated Glomerular Filt Rate > 60; Glucose 91 mg/dL (65-110); Magnesium 2.1 mg/dL (1.6-2.3); Potassium 4.2 mmol/L (3.4-5.0); Sodium 138 mmol/L (137-145)
[2024-12-06] MEDS: ROSUVASTATIN 20 MG TABLET PO (08:05)
[2024-12-06] MEDS: COLCHICINE 0.6 MG TABLET PO ×2 (08:05→20:53)
[2024-12-06] MEDS: ASPIRIN 81 MG CHEWABLE TABLET PO (08:05)
[2024-12-06] MEDS: levETIRAcetam 500 MG TABLET PO ×2 (08:05→20:53)
[2024-12-06] MEDS: GABAPENTIN 300 MG CAPSULE PO (08:05)
[2024-12-06] MEDS: ENOXAPARIN 40 MG/0.4 ML SYRINGE SUB-Q (08:06)
[2024-12-06] MEDS: SODIUM CHLORIDE 0.9% IV 1,000 ML 100 ML IV CONT (12:14)
--- NOTE | 2024-12-06 12:48 | P.PNCA_ITS ---
Progress Note: A&P Assessment and Plan (1) Chest pain at rest: Code(s): R07.9 - Chest pain, unspecified Status: Acute (2) Hyperlipidemia: Code(s): E78.5 - Hyperlipidemia, unspecified Status: Acute (3) Pericarditis: Code(s): I31.9 - Disease of pericardium, unspecified Status: Acute Plan Assessment: Chest pain due to pericarditis versus slow flow in the coronaries; no obstructive CAD was noted on catheterization No obstructive CAD; slow flow noted in the LAD (SBP was in the 80s at the time this catheterization was performed) Hypokalemia, low LVEDP of 5 on catheterization Hyperlipidemia Seizure disorder Hypothyroid Plan: It appears that a low blood pressure is leading to low coronary perfusion pressure causing slow flow in the LAD. This may be the cause of patient's chest pain/pressure. Pain resolved after IV fluids were administered and blood pressure improved which indirectly improves coronary perfusion pressure. Patient endorses that he does not drink water but drinks green tea. I advised patient to drink 1-2 L of water daily to avoid drop in his systolic blood pressure Sublingual nitroglycerin p.r.n. for chest pain as nitro vasodilators the coronaries and may help improve flow Continue aspirin, statin If no contraindication then give high-dose NSAIDs for pericarditis-can give ibuprofen 800 mg t.i.d. for 1 week Continue colchicine Follow-up with cardiology in 2-4 weeks post discharge Subjective Date/time seen: 12/06/24 12:48 Interval history: Reason For Visit: Chest pain HPI: 59-year-old male with past medical history of CAD, hyperlipidemia, rheumatic fever, neurofibromatosis, hypothyroid, epileptic seizure presented with sharp left-sided chest pain for 1 day that increased with laying flat decreased by leaning forwards suggestive of pericarditis. No anginal chest pain. EKG at presentation showed sinus rhythm and ST elevation in inferior leads suspicious for acute [place] and Cardiology was consulted further management. Review of older EKGs showed similar ST changes suggestive of early repolarization and acute [place] was ruled out. Troponin x3 negative. He had new chest pressure and hypotension for which Cardiac catheterization was performed urgently to evaluate ischemia as cause of his symptoms. Catheterization showed normal coronaries with slow flow in the LAD with SBP in the 80s at the time of this catheterization. LVEDP was low at 5. After administration of IV fluids and improvement in blood pressure, patient's chest pain resolved. Interval history: No chest pain this morning. His blood pressure is improved with systolic in the 90s. No shortness of breath, lightheadedness, dizziness, nausea, abdominal pain. Patient endorses that he does not drink enough water bu t drinks tea. Review of Systems Review of Systems: Complete review of systems was performed and pertinent positives are noted in HPI Exam Narrative: General: Alert oriented x3, no acute distress Neck: Supple, no JVD Chest: Bilaterally clear to auscultation, no rales or rhonchi Cardiac: S1, S2 +, regular rate, regular rhythm, no murmurs or rubs Extremities: No pedal edema, no skin rash Neurologic: Alert and oriented x3, no focal neurological deficits Objective Data Vital Signs Vital Signs: Vital Signs - 24 hr 12/05/24 16:00 12/05/24 16:00 12/05/24 16:27 Temperature 36.4 C L Pulse Rate 61 61 62 Pulse Rate [Monitor] Respiratory Rate 18 19 Blood Pressure 99/62 L Pulse Oximetry 97 97 Oxygen Delivery Room Air 12/05/24 18:00 12/05/24 18:01 12/05/24 18:16 Temperature Pulse Rate 62 57 L 57 L Pulse Rate [Monitor] 57 L 57 L Respiratory Rate 22 H 20 Blood Pressure 120/78 122/80 Pulse Oximetry 99 98 Oxygen Delivery 12/05/24 18:24 12/05/24 18:39 12/05/24 18:46 Temperature Pulse Rate 56 L 56 L 56 L Pulse Rate [Monitor] 57 L Respiratory Rate 20 16 18 Blood Pressure 122/80 125/73 121/78 Pulse Oximetry 99 99 98 Oxygen Delivery 12/05/24 18:54 12/05/24 19:00 12/05/24 19:15 Temperature Pulse Rate 60 58 L 58 L Pulse Rate [Monitor] Respiratory Rate 20 18 18 Blood Pressure 121/78 123/81 117/79 Pulse Oximetry 98 99 99 Oxygen Delivery 12/05/24 19:30 12/05/24 19:40 12/05/24 20:00 Temperature Pulse Rate 57 L 57 L Pulse Rate [Monitor] Respiratory Rate 15 16 Blood Pressure 118/82 118/82 Pulse Oximetry 98 98 Oxygen Delivery Room Air 12/05/24 20:00 12/05/24 20:00 12/05/24 20:15 Temperature 36.6 C Pulse Rate 57 L 58 L 70 Pulse Rate [Monitor] Respiratory Rate 15 12 Blood Pressure 113/81 116/77 Pulse Oximetry 98 99 Oxygen Delivery 12/05/24 20:30 12/05/24 20:45 12/05/24 21:00 Temperature Pulse Rate 58 L 57 L 56 L Pulse Rate [Monitor] Respiratory Rate 15 15 15 Blood Pressure 115/80 110/76 113/77 Pulse Oximetry 99 100 98 Oxygen Delivery 12/05/24 21:15 12/05/24 21:30 12/05/24 21:45 Temperature Pulse Rate 57 L 55 L 60 Pulse Rate [Monitor] Respiratory Rate 17 16 18 Blood Pressure 111/78 108/77 111/72 Pulse Oximetry 100 99 99 Oxygen Delivery 12/05/24 22:00 12/05/24 22:00 12/05/24 22:00 Temperature Pulse Rate 60 58 L Pulse Rate [Monitor] Respiratory Rate 18 Blood Pressure 110/72 Pulse Oximetry Oxygen Delivery Room Air 12/05/24 22:16 12/05/24 22:30 12/05/24 23:00 Temperature Pulse Rate 56 L 57 L 58 L Pulse Rate [Monitor] Respiratory Rate Blood Pressure 106/77 108/69 Pulse Oximetry Oxygen Delivery 12/05/24 23:30 12/05/24 23:49 12/06/24 00:00 Temperature 37.1 C Pulse Rate 55 L 58 L Pulse Rate [Monitor] Respiratory Rate 18 Blood Pressure 106/67 97/66 L Pulse Oximetry 98 Oxygen Delivery Room Air 12/06/24 00:00 12/06/24 00:52 12/06/24 02:00 Temperature Pulse Rate 54 L 64 54 L Pulse Rate [Monitor] Respiratory Rate Blood Pressure 102/66 101/65 Pulse Oximetry Oxygen Delivery 12/06/24 02:00 12/06/24 03:00 12/06/24 03:35 Temperature 36.5 C Pulse Rate 54 L 62 58 L Pulse Rate [Monitor] Respiratory Rate 18 Blood Pressure 101/63 99/68 L Pulse Oximetry 99 Oxygen Delivery 12/06/24 03:46 12/06/24 04:00 12/06/24 06:00 Temperature Pulse Rate 53 L 56 L Pulse Rate [Monitor] Respiratory Rate Blood Pressure Pulse Oximetry Oxygen Delivery Room Air 12/06/24 07:46 12/06/24 08:00 12/06/24 08:00 Temperature 36.9 C Pulse Rate 62 62 62 Pulse Rate [Monitor] Respiratory Rate 16 16 Blood Pressure 97/55 L Pulse Oximetry 62 L 62 L Oxygen Delivery Room Air 12/06/24 10:00 12/06/24 11:14 12/06/24 11:25 Temperature 36.8 C 36.8 C Pulse Rate 62 58 L 58 L Pulse Rate [Monitor] Respiratory Rate 12 12 Blood Pressure 98/61 L 98/61 L Pulse Oximetry 98 98 Oxygen Delivery 12/06/24 12:00 12/06/24 12:00 12/06/24 12:33 Temperature Pulse Rate 58 L 58 L 58 L Pulse Rate [Monitor] Respiratory Rate 12 Blood Pressure Pulse Oximetry 98 Oxygen Delivery Room Air Intake/Output Intake/Output: Intake & Output 12/03/24 12/04/24 12/05/24 12/06/24 23:59 23:59 23:59 23:59 Intake Total 595 394 0725 Balance 162 739 8302 Meds/Results Medications: Active Medications Generic Name Dose Route Start Last Admin Trade Name Freq PRN Reason Stop Dose Admin Acetaminophen 650 mg 12/03/24 19:33 Acetaminophen 325 Mg Tablet PO Q4H PRN Mild Pain (1-3) or Fever Hydrocodone Bitart/Acetaminophen 1 tab 12/04/24 03:23 12/05/24 18:31 Hydrocodone/Acetaminophen (*Crx) 5-325 Mg Tablet PO 1 tab Q6H PRN Administration Pain Rated 4-6 Aspirin 81 mg 12/04/24 08:00 12/06/24 08:05 Aspirin 81 Mg Chewable Tablet PO 81 mg DAILY@0800 [facility] Administration Colchicine 0.6 mg 12/04/24 10:20 12/06/24 08:05 Colchicine 0.6 Mg Tablet PO 0.6 mg Q12HR [facility] Administration Enoxaparin Sodium 40 mg 12/04/24 09:00 12/06/24 08:06 Enoxaparin 40 Mg/0.4 Ml Syringe SUB-Q 40 mg DAILY [facility] Administration Gabapentin 300 mg 12/04/24 09:00 12/06/24 08:05 Gabapentin 300 Mg Capsule PO 300 mg DAILY [facility] Administration Sodium Chloride 1,000 mls @ 100 mls/hr 12/06/24 11:05 12/06/24 12:14 Normal Saline Iv IV CONT 100 mls/hr .Q10H [facility]STA Administration Ibuprofen 800 mg 12/05/24 10:50 12/06/24 08:05 Ibuprofen 400 Mg Tablet PO 800 mg Q8H [facility] Administration Levetiracetam 500 mg 12/04/24 09:00 12/06/24 08:05 Levetiracetam 500 Mg Tablet PO 500 mg Q12HR [facility] Administration Levothyroxine Sodium 125 mcg 12/04/24 06:30 12/06/24 05:11 Levothyroxine Sodium 125 Mcg Tablet PO 125 mcg DAILY@0630 [facility] Administration Morphine Sulfate 2 mg 12/04/24 03:23 Morphine Sulfate (*Crx) 2 Mg/Ml Inj IV PUSH Q4H PRN Pain Rated 7-10 Perflutren Lipid Microsphere 0 ml 12/04/24 10:08 Perflutren Lipid Microspheres 1.5 Ml Vial Diluted To 10 Ml Total Volume IV PUSH 12/07/24 10:08 ONCE PRN adequate visualization Protocol Rosuvastatin Calcium 20 mg 12/04/24 09:00 12/06/24 08:05 Rosuvastatin 20 Mg Tablet PO 20 mg QAM K[facility]STA Administration Radiology Results: ITS Impressions Chest X-Ray 12/03/24 19:15 IMPRESSION: No focal infiltrate or effusion. Chest CTA 12/03/24 20:05 IMPRESSION: No pulmonary embolus. No aortic dissection or aneurysmal dilatation. The lungs are clear. Labs Labs: Laboratory Results - last 24 hr 12/06/24 04:56 WBC 5.6 RBC 4.33 L Hgb 13.6 L Hct 41.9 L MCV 96.8 MCH 31.4 MCHC 32.5 RDW 11.1 L Plt Count 155 MPV 10.9 H Immature Gran % (Auto) 0.2 Neut % (Auto) 69.4 Lymph % (Auto) 19.8 [place] % (Auto) 8.5 Eos % (Auto) 1.6 Baso % (Auto) 0.5 Lymph # (Auto) 1.10 [place] # (Auto) 0.5 Eos # (Auto) 0.1 Baso # (Auto) 0.0 Abs Immat Gran (auto) 0.01 Absolute Neuts (auto) 3.9 Absolute Nucleated RBC 0.000 Nucleated RBC % 0.0 Sodium 138 Potassium 4.2 Chloride 106 Carbon Dioxide 26 Anion Gap 6 BUN 22 H Creatinine 0.91 Estim Creat Clear Calc 76 Estimated GFR > 60 Glucose 91 Calcium 8.2 L Magnesium 2.1 Total Bilirubin 1.0 AST 25 ALT 11 Alkaline Phosphatase 49 Total Protein 6.0 L Albumin 3.2 L
--- NOTE | 2024-12-06 14:45 | PM.IMPN ---
Progress Note: A&P Assessment and Plan (1) Chest pain: Code(s): R07.9 - Chest pain, unspecified Status: Acute (2) CAD (coronary artery disease): Code(s): I25.10 - Atherosclerotic heart disease of [place] coronary artery without angina pectoris Status: Acute (3) Chronic back pain: Code(s): M54.9 - Dorsalgia, unspecified; G89.29 - Other chronic pain Status: Acute (4) Hyperlipidemia: Code(s): E78.5 - Hyperlipidemia, unspecified Status: Acute (5) History of seizure disorder: Code(s): Z86.69 - Personal history of other diseases of the nervous system and sense organs Status: Acute (6) Hypothyroidism: Code(s): E03.9 - Hypothyroidism, unspecified Status: Acute Plan Patient reported chest pain earlier today. Presented with chest pain that started approximately 3 4:00 a.m. in the evening also had cough for past 2 weeks. Associated shortness of breath and pain in the center of his back. History of STEMI at age 39 takes aspirin every day. Sick contact with father having pneumonia 2 weeks ago. EKG on arrival showed ST-elevation in inferior leads STEMI was called. Cardiology was consulted and EKG was reviewed with the older EKG in 2019 which looked exactly the same. Suspected early repolarization changes. STEMI call was canceled. Laboratory workup revealed normal WBC of 7.6 hemoglobin 15.5 Chem panel was unremarkable. Troponin was negative less than 0.012. Lipase was normal at 138. Chest x-ray showed no focal infiltrate or effusion. Serial troponin was performed which remained negative x3. In fact markers were not negative as well. Cardiology suspect pericarditis. CTA chest was performed which was negative for PE aortic dissection. Lungs were clear. Cardiology evaluated. Echocardiogram normal EF with no wall motion abnormality. Started on colchicine. Also add ibuprofen. You underwent cardiac catheterization which showed no coronary artery disease but low flow in LAD. Likely due to hypoperfusion from hypotension Hypotension mild. Flow was low in LAD. Will give IV fluid. Continue on aspirin. No seizure disorder continue Keppra Hypothyroidism levothyroxine Hyperlipidemia lipid panel with elevated cholesterol and elevated LDL initiated statin therapy. History of STEMI in the past with no stents in the past. History of neurofibromatosis DVT prophylaxis Lovenox Subjective Date/time seen: 12/06/24 14:45 Interval history: events noted. Catheterization reviewed. Received IV fluid bolus overnight. Blood pressure still lowish. Denies any chest pain. Review of Systems Review of Systems: All systems reviewed & are unremarkable except as noted in HPI and below Exam Narrative: GENERAL APPEARANCE: WELL-DEVELOPED, WELL-NOURISHED SKIN: WARM AND DRY HEAD: NORMOCEPHALIC, NONTRAUMATIC EYES: CLEAR CONJUNCTIVA NECK: SUPPLE, NONTENDER CHEST AND RESPIRATORY: AIRWAY PATENT, NO RESPIRATORY DISTRESS, NO ACCESSORY MUSCLE USE HEART: REGULAR RATE/RHYTHM ABDOMEN: SOFT, NONTENDER, NO ORGANOMEGALY, QUIET BOWEL SOUNDS VASCULAR: NORMAL PERIPHERAL PULSES, NORMAL CAPILLARY REFILL. MUSCULOSKELETAL: NORMAL RANGE OF MOTION, NONTENDER BACK NEUROLOGIC: ALERT AND ORIENTED ?3, NO GROSS MOTOR DEFICIT Objective Data Vital Signs Vital Signs: Vital Signs - 24 hr 12/05/24 16:00 12/05/24 16:00 12/05/24 16:27 Temperature 97.5 F L Pulse Rate 61 61 62 Pulse Rate [Monitor] Respiratory Rate 18 19 Blood Pressure 99/62 L Pulse Oximetry 97 97 Oxygen Delivery Room Air 12/05/24 18:00 12/05/24 18:01 12/05/24 18:16 Temperature Pulse Rate 62 57 L 57 L Pulse Rate [Monitor] 57 L 57 L Respiratory Rate 22 H 20 Blood Pressure 120/78 122/80 Pulse Oximetry 99 98 Oxygen Delivery 12/05/24 18:24 12/05/24 18:39 12/05/24 18:46 Temperature Pulse Rate 56 L 56 L 56 L Pulse Rate [Monitor] 57 L Respiratory Rate 20 16 18 Blood Pressure 122/80 125/73 121/78 Pulse Oximetry 99 99 98 Oxygen Delivery 12/05/24 18:54 12/05/24 19:00 12/05/24 19:15 Temperature Pulse Rate 60 58 L 58 L Pulse Rate [Monitor] Respiratory Rate 20 18 18 Blood Pressure 121/78 123/81 117/79 Pulse Oximetry 98 99 99 Oxygen Delivery 12/05/24 19:30 12/05/24 19:40 12/05/24 20:00 Temperature Pulse Rate 57 L 57 L Pulse Rate [Monitor] Respiratory Rate 15 16 Blood Pressure 118/82 118/82 Pulse Oximetry 98 98 Oxygen Delivery Room Air 12/05/24 20:00 12/05/24 20:00 12/05/24 20:15 Temperature 97.8 F Pulse Rate 57 L 58 L 70 Pulse Rate [Monitor] Respiratory Rate 15 12 Blood Pressure 113/81 116/77 Pulse Oximetry 98 99 Oxygen Delivery 12/05/24 20:30 12/05/24 20:45 12/05/24 21:00 Temperature Pulse Rate 58 L 57 L 56 L Pulse Rate [Monitor] Respiratory Rate 15 15 15 Blood Pressure 115/80 110/76 113/77 Pulse Oximetry 99 100 98 Oxygen Delivery 12/05/24 21:15 12/05/24 21:30 12/05/24 21:45 Temperature Pulse Rate 57 L 55 L 60 Pulse Rate [Monitor] Respiratory Rate 17 16 18 Blood Pressure 111/78 108/77 111/72 Pulse Oximetry 100 99 99 Oxygen Delivery 12/05/24 22:00 12/05/24 22:00 12/05/24 22:00 Temperature Pulse Rate 60 58 L Pulse Rate [Monitor] Respiratory Rate 18 Blood Pressure 110/72 Pulse Oximetry Oxygen Delivery Room Air 12/05/24 22:16 12/05/24 22:30 12/05/24 23:00 Temperature Pulse Rate 56 L 57 L 58 L Pulse Rate [Monitor] Respiratory Rate Blood Pressure 106/77 108/69 Pulse Oximetry Oxygen Delivery 12/05/24 23:30 12/05/24 23:49 12/06/24 00:00 Temperature 98.8 F Pulse Rate 55 L 58 L Pulse Rate [Monitor] Respiratory Rate 18 Blood Pressure 106/67 97/66 L Pulse Oximetry 98 Oxygen Delivery Room Air 12/06/24 00:00 12/06/24 00:52 12/06/24 02:00 Temperature Pulse Rate 54 L 64 54 L Pulse Rate [Monitor] Respiratory Rate Blood Pressure 102/66 101/65 Pulse Oximetry Oxygen Delivery 12/06/24 02:00 12/06/24 03:00 12/06/24 03:35 Temperature 97.7 F Pulse Rate 54 L 62 58 L Pulse Rate [Monitor] Respiratory Rate 18 Blood Pressure 101/63 99/68 L Pulse Oximetry 99 Oxygen Delivery 12/06/24 03:46 12/06/24 04:00 12/06/24 06:00 Temperature Pulse Rate 53 L 56 L Pulse Rate [Monitor] Respiratory Rate Blood Pressure Pulse Oximetry Oxygen Delivery Room Air 12/06/24 07:46 12/06/24 08:00 12/06/24 08:00 Temperature 98.4 F Pulse Rate 62 62 62 Pulse Rate [Monitor] Respiratory Rate 16 16 Blood Pressure 97/55 L Pulse Oximetry 62 L 62 L Oxygen Delivery Room Air 12/06/24 10:00 12/06/24 11:14 12/06/24 11:25 Temperature 98.2 F 98.2 F Pulse Rate 62 58 L 58 L Pulse Rate [Monitor] Respiratory Rate 12 12 Blood Pressure 98/61 L 98/61 L Pulse Oximetry 98 98 Oxygen Delivery 12/06/24 12:00 12/06/24 12:00 12/06/24 12:33 Temperature Pulse Rate 58 L 58 L 58 L Pulse Rate [Monitor] Respiratory Rate 12 Blood Pressure Pulse Oximetry 98 Oxygen Delivery Room Air Intake/Output Intake/Output: Intake & Output 12/03/24 12/04/24 12/05/24 12/06/24 23:59 23:59 23:59 23:59 Intake Total 035 880 5410 Balance 783 009 7483 Meds/Results Medications: Active Medications Generic Name Dose Route Start Last Admin Trade Name Freq PRN Reason Stop Dose Admin Acetaminophen 650 mg 12/03/24 19:33 Acetaminophen 325 Mg Tablet PO Q4H PRN Mild Pain (1-3) or Fever Hydrocodone Bitart/Acetaminophen 1 tab 12/04/24 03:23 12/05/24 18:31 Hydrocodone/Acetaminophen (*Crx) 5-325 Mg Tablet PO 1 tab Q6H PRN Administration Pain Rated 4-6 Aspirin 81 mg 12/04/24 08:00 12/06/24 08:05 Aspirin 81 Mg Chewable Tablet PO 81 mg DAILY@0800 KRISTA Administration Colchicine 0.6 mg 12/04/24 10:20 12/06/24 08:05 Colchicine 0.6 Mg Tablet PO 0.6 mg Q12HR KRISTA Administration Enoxaparin Sodium 40 mg 12/04/24 09:00 12/06/24 08:06 Enoxaparin 40 Mg/0.4 Ml Syringe SUB-Q 40 mg DAILY KRISTA Administration Gabapentin 300 mg 12/04/24 09:00 12/06/24 08:05 Gabapentin 300 Mg Capsule PO 300 mg DAILY KRISTA Administration Sodium Chloride 1,000 mls @ 100 mls/hr 12/06/24 11:05 12/06/24 12:14 Normal Saline Iv IV CONT 100 mls/hr .Q10H KIRSTA Administration Ibuprofen 800 mg 12/05/24 10:50 12/06/24 08:05 Ibuprofen 400 Mg Tablet PO 800 mg Q8H KRISTA Administration Levetiracetam 500 mg 12/04/24 09:00 12/06/24 08:05 Levetiracetam 500 Mg Tablet PO 500 mg Q12HR KRISTA Administration Levothyroxine Sodium 125 mcg 12/04/24 06:30 12/06/24 05:11 Levothyroxine Sodium 125 Mcg Tablet PO 125 mcg DAILY@0630 KRISTA Administration Morphine Sulfate 2 mg 12/04/24 03:23 Morphine Sulfate (*Crx) 2 Mg/Ml Inj IV PUSH Q4H PRN Pain Rated 7-10 Perflutren Lipid Microsphere 0 ml 12/04/24 10:08 Perflutren Lipid Microspheres 1.5 Ml Vial Diluted To 10 Ml Total Volume IV PUSH 12/07/24 10:08 ONCE PRN adequate visualization Protocol Rosuvastatin Calcium 20 mg 12/04/24 09:00 12/06/24 08:05 Rosuvastatin 20 Mg Tablet PO 20 mg QAM KRISTA Administration Radiology Results: ITS Impressions Chest X-Ray 12/03/24 19:15 IMPRESSION: No focal infiltrate or effusion. Chest CTA 12/03/24 20:05 IMPRESSION: No pulmonary embolus. No aortic dissection or aneurysmal dilatation. The lungs are clear. Labs Labs: Laboratory Results - last 24 hr 12/06/24 04:56 WBC 5.6 RBC 4.33 L Hgb 13.6 L Hct 41.9 L MCV 96.8 MCH 31.4 MCHC 32.5 RDW 11.1 L Plt Count 155 MPV 10.9 H Immature Gran % (Auto) 0.2 Neut % (Auto) 69.4 Lymph % (Auto) 19.8 [place] % (Auto) 8.5 Eos % (Auto) 1.6 Baso % (Auto) 0.5 Lymph # (Auto) 1.10 [place] # (Auto) 0.5 Eos # (Auto) 0.1 Baso # (Auto) 0.0 Abs Immat Gran (auto) 0.01 Absolute Neuts (auto) 3.9 Absolute Nucleated RBC 0.000 Nucleated RBC % 0.0 Sodium 138 Potassium 4.2 Chloride 106 Carbon Dioxide 26 Anion Gap 6 BUN 22 H Creatinine 0.91 Estim Creat Clear Calc 76 Estimated GFR > 60 Glucose 91 Calcium 8.2 L Magnesium 2.1 Total Bilirubin 1.0 AST 25 ALT 11 Alkaline Phosphatase 49 Total Protein 6.0 L Albumin 3.2 L
[2024-12-07] VITALS (7 sets, daily range): BP systolic 94–104; BP diastolic 59–66; PULSE 56–63; RESP 16–18; TEMP 36.7–36.9; O2SAT 98–99
[2024-12-07] MEDS: IBUPROFEN 400 MG TABLET 800 MG PO (02:45)
[2024-12-07 05:00] LABS: Basophils Percent Auto 0.5 % (0.2-1.2); Eosinophils Absolute Auto 0.1 K/mm3 (0-0.3); Hematocrit 38.2 % (42.0-52.0); Hemoglobin 12.8 g/dL (14.0-18.0); Immature Granulocyte Absolute 0.02 K/mm3 (0.00-0.031); Immature Granulocyte Percent A 0.3 % (0-0.5); Lymphocytes Absolute Auto 1.16 K/mm3 (0.9-3.2); Mean Corpuscular HGB Conc 33.5 g/dl (32-36); Mean Corpuscular Hemoglobin 31.9 pg (26-34); Mean Corpuscular Volume 95.3 fl (80-100); Mean Platelet Volume 11.4 fl (7.4-10.4); Monocytes Absolute Auto 0.5 K/mm3 (0.1-0.6); Monocytes Percent Auto 8.9 % (2.6-8.5); Neutrophils Absolute Auto 4.2 K/mm3 (1.3-6.7); Neutrophils Percent Auto 69.3 % (45.5-73.1); Platelet Count Result 155 k/mm3 (150-375); Red Blood Count 4.01 M/mm3 (4.6-6.20); Red Cell Distribution Width 11.2 % (11.5-14.5); White Blood Count 6.1 K/mm3 (4.5-10.0)
[2024-12-07] MEDS: LEVOTHYROXINE SODIUM 125 MCG TABLET PO (05:12)
[2024-12-07 05:16] LABS: Alanine Aminotransferase 14 U/L (6-50); Albumin Level 3.4 g/dL (3.5-5.1); Alkaline Phosphatase 51 U/L (38-126); Anion Gap 5 mmol/L (4-12); Aspartate Amino Transferase 24 U/L (17-59); Blood Urea Nitrogen 21 mg/dL (9-20); Calcium 8.8 mg/dL (8.4-10.2); Carbon Dioxide 26 mmol/L (22-30); Chloride 105 mmol/L (98-107); Estimated CRCL calculation 81 ml/min; Estimated Glomerular Filt Rate > 60; Glucose 81 mg/dL (65-110); Magnesium 1.9 mg/dL (1.6-2.3); Potassium 3.7 mmol/L (3.4-5.0); Sodium 136 mmol/L (137-145)
[2024-12-07] MEDS: GABAPENTIN 300 MG CAPSULE PO (08:52)
[2024-12-07] MEDS: ROSUVASTATIN 20 MG TABLET PO (08:52)
[2024-12-07] MEDS: levETIRAcetam 500 MG TABLET PO (08:52)
[2024-12-07] MEDS: COLCHICINE 0.6 MG TABLET PO (08:52)
[2024-12-07] MEDS: ENOXAPARIN 40 MG/0.4 ML SYRINGE SUB-Q (08:53)
[2024-12-07] MEDS: ASPIRIN 81 MG CHEWABLE TABLET PO (08:53)
--- NOTE | 2024-12-07 09:04 | P.DS_ITS ---
DS: Admitting Diagnosis Discharge Date 12/07/2024 Admitting Diagnosis Chest pain DS: Discharge Diagnosis Discharge Diagnosis (1) Chest pain: Code(s): R07.9 - Chest pain, unspecified Status: Acute (2) CAD (coronary artery disease): Code(s): I25.10 - Atherosclerotic heart disease of [place] coronary artery without angina pectoris Status: Acute (3) Chronic back pain: Code(s): M54.9 - Dorsalgia, unspecified; G89.29 - Other chronic pain Status: Acute (4) Hyperlipidemia: Code(s): E78.5 - Hyperlipidemia, unspecified Status: Acute (5) History of seizure disorder: Code(s): Z86.69 - Personal history of other diseases of the nervous system and sense organs Status: Acute (6) Hypothyroidism: Code(s): E03.9 - Hypothyroidism, unspecified Status: Acute DS: Summary Hospital Course Hospital Course: Patient reported chest pain earlier today. Presented with chest pain that started approximately 3 4:00 a.m. in the evening also had cough for past 2 weeks. Associated shortness of breath and pain in the center of his back. History of STEMI at age 39 takes aspirin every day. Sick contact with father having pneumonia 2 weeks ago. EKG on arrival showed ST-elevation in inferior leads STEMI was called. Cardiology was consulted and EKG was reviewed with the older EKG in 2019 which looked exactly the same. Suspected early repolarization changes. STEMI call was canceled. Laboratory workup revealed normal WBC of 7.6 hemoglobin 15.5 Chem panel was unremarkable. Troponin was negative less than 0.012. Lipase was normal at 138. Chest x-ray showed no focal infiltrate or effusion. Serial troponin was performed which remained negative x3. In fact markers were not negative as well. Cardiology suspect pericarditis. CTA chest was performed which was negative for PE aortic dissection. Lungs were clear. Cardiology evaluated. Echocardiogram normal EF with no wall motion abnormality. Started on colchicine. Also add ibuprofen. You underwent cardiac catheterization which showed no coronary artery disease but low flow in LAD. Likely due to hypoperfusion from hypotension Hypotension mild. Flow was low in LAD. Received IV fluid with improvement. Continue on aspirin. No seizure disorder continue Keppra Hypothyroidism levothyroxine Hyperlipidemia lipid panel with elevated cholesterol and elevated LDL initiated statin therapy. History of STEMI in the past with no stents in the past. History of neurofibromatosis DVT prophylaxis Lovenox Time Spent with Patient Time attestation: Total time spent providing and/or coordinating discharge services: 35 minutes Exam Narrative: GENERAL APPEARANCE: WELL-DEVELOPED, WELL-NOURISHED SKIN: WARM AND DRY HEAD: NORMOCEPHALIC, NONTRAUMATIC EYES: CLEAR CONJUNCTIVA NECK: SUPPLE, NONTENDER CHEST AND RESPIRATORY: AIRWAY PATENT, NO RESPIRATORY DISTRESS, NO ACCESSORY MUSCLE USE HEART: REGULAR RATE/RHYTHM ABDOMEN: SOFT, NONTENDER, NO ORGANOMEGALY, QUIET BOWEL SOUNDS VASCULAR: NORMAL PERIPHERAL PULSES, NORMAL CAPILLARY REFILL. MUSCULOSKELETAL: NORMAL RANGE OF MOTION, NONTENDER BACK NEUROLOGIC: ALERT AND ORIENTED ?3, NO GROSS MOTOR DEFICIT DS: Data Data Completed and Pending Labs on day of discharge: Labs from last 24 hours 12/07/24 04:15 WBC 6.1 RBC 4.01 L Hgb 12.8 L Hct 38.2 L MCV 95.3 MCH 31.9 MCHC 33.5 RDW 11.2 L Plt Count 155 MPV 11.4 H Immature Gran % (Auto) 0.3 Neut % (Auto) 69.3 Lymph % (Auto) 19.0 [place] % (Auto) 8.9 H Eos % (Auto) 2.0 Baso % (Auto) 0.5 Lymph # (Auto) 1.16 [place] # (Auto) 0.5 Eos # (Auto) 0.1 Baso # (Auto) 0.0 Abs Immat Gran (auto) 0.02 Absolute Neuts (auto) 4.2 Absolute Nucleated RBC 0.000 Nucleated RBC % 0.0 Sodium 136 L Potassium 3.7 Chloride 105 Carbon Dioxide 26 Anion Gap 5 BUN 21 H Creatinine 0.84 Estim Creat Clear Calc 81 Estimated GFR > 60 Glucose 81 Calcium 8.8 Magnesium 1.9 Total Bilirubin 1.0 AST 24 ALT 14 Alkaline Phosphatase 51 Total Protein 6.0 L Albumin 3.4 L Procedures/Treatments: Cardiac Cath Procedure Note Date of procedure:: 12/05/24 Performing physician:: Chelsey Birmingham MD Indication:: Chest pain at rest, hypotension Brief clinical history:: 59 year old male patient with past medical history of CAD, hyperlipidemia, rheumatic fever, neurofibromatosis, hypothyroid, epileptic seizure presented with sharp left-sided chest pain for 1 day that increased with laying flat decreased by leaning forwards suggestive of pericarditis. EKG at presentation showed sinus rhythm and ST elevation in inferior leads suspicious for acute UT and Cardiology was consulted further management. Review of older EKGs showed similar ST changes suggestive of early repolarization and acute UT was ruled out. Troponin x3 negative. Patient had chest pressure this morning which is new compared to the pain he presented with. He was hypotensive with SBP in the 80s and he felt dizzy when he was in the bathroom. His HR was in the 50s. Given new change in symptoms, it was decided to proceed with a cardiac cath to evaluate coronary ischemia as cause of his symptoms. Procedure Procedure performed:: Right radial access Left heart catheterization Selective left and right coronary angiography Sedation/Medication given:: Versed 1mg Fentanyl 100mcg Sedation start time: 17:21 Sedation end time: 17:37 Total sedation monitoring time: 16min Procedure note:: Hemodynamic data: Opening aortic pressure: 84/56mmHg Closing aortic pressure: 84/59mmHg LVEDP: 5mmHg Procedure technique: After informed consent was obtained, the patient was brought to the cardiac crown and bridge dental lab technician and was placed in the supine position. Access site was prepped and draped in usual sterile manner. Right radial access was obtained using modified Seldinger technique. Six Swazi sheath was inserted in the right radial artery. 200mg of nitroglycerin was administered through the radial sheath. 5000units of IV heparin were administered after crossing the arch with a J-wire. We started 1st with coronary angiography. Selective right coronary angiography was performed in a standard fashion using diagnostic JR 4 catheter. The JR4 catheter was used to cross into the LV over a J-wire and LVEDP was obtained. The JR4 catheter was removed from the body. Selective left coronary angiography was performed in a standard fashion using diagnostic JL3.5 diagnostic catheter. The JL3.5. catheter was removed from the body. Patient tolerated the procedure well without any complications. Radial artery sheath was removed from the body. TR band was applied to the radial access site. Catheters used for selective coronary angiograms: Six Swazi JL 3.5 diagnostic catheter Six Swazi JR4 diagnostic catheter Findings:: 1. The left main coronary artery arises from the left coronary cusp and divides into the left anterior descending and left circumflex. It is free of angiographic disease. 2. The left anterior descending artery arises from the left main and gives off multiple diagonals. It is free of angiographic disease. There is slow flow in the LAD which improved with angiography. The BP at the time of this slow flow was in the 80s and hence nitro could not be administered. 3. The left circumflex artery arises from the left main and is a non dominant artery. It is free of angiographic disease. 4. RCA is a large vessel and dominant which bifurcates into the RPDA and RPLA. It is free of angiographic disease. Conclusion:: Normal coronaries Slow flow in LAD improved with angiography Assessment and Plan Assessment and plan (1) Unstable angina: Code(s): I20.0 - Unstable angina Status: Acute (2) Pericarditis: Code(s): I31.9 - Disease of pericardium, unspecified Status: Acute (3) Hyperlipidemia: Code(s): E78.5 - Hyperlipidemia, unspecified Status: Acute Plan -Chest pain suspected to be unstable angina given onset at rest this morning. Based on cardiac cath findings, this pain is most likely secondary to slow flow in the LAD which may be secondary to hypotension; pericarditis is also on the differential due to nature of the chest pain which improves with bending forward and worse with leaning back -Low LVEDP of 5mmHg -Hypotension -Hyperlipidemia Plan: -Recommend IV fluids normal saline as LVEDP is low and patient has hypotension. Increasing BP could will coronary perfusion pressure and improve the slow flow in the LAD -Hold all blood pressure lowering medications for now -Continue aspirin 81 mg daily -If no contraindication then give high-dose NSAIDs for pericarditis-can give ibuprofen 800 mg t.i.d. for 1 week -Continue colchicine -Management of other noncardiac medical problems per primary team Imaging Radiologist's impression: Exam Type: CA echo dop color flow w con Study Info Indications R07.9 - Chest pain, unspecified Complete two-dimensional, color flow and Doppler transthoracic echocardiogram is performed with contrast to opacify the left ventricle and to improve the deliniation of the left ventricle endocardial borders. Contrast/Agitated Saline Contrast/Ag. Saline: Definity Amount: 2.00 ml Administered By: Ilene Lawrence RDCS Existing IV Access: Yes IV Access Condition: patent with no signs of infiltration Summary 1. Definity contrast administered improved wall motion interpretation. 2. Left ventricular chamber dimension is normal. 3. Left ventricular systolic function is normal, estimated at 60-65%. 4. There is mild concentric increased left ventricular wall thickness. 5. The left ventricular diastolic function is normal. 6. E/e' 6 is not elevated. 7. There is mild mitral valve regurgitation. 8. No pulmonary hypertension, estimated pulmonary arterial systolic pressure is 17 mmHg. Left Ventricle E/e' 6 is not elevated. Definity contrast administered improved wall motion interpretation. Left ventricular chamber dimension is normal. Left ventricular systolic function is normal, estimated at 60-65%. There is mild concentric increased left ventricular wall thickness. The left ventricular diastolic function is normal. Right Ventricle Right ventricular systolic function is normal and with normal TAPSE 2.1 cm. Right ventricular chamber dimension is normal. Left Atria Left atrial chamber dimension is normal. Right Atria Right atrial chamber dimension is normal. Aortic Valve The aortic valve is trileaflet. There is no aortic valve stenosis. There is no aortic valve regurgitation. Pulmonic Valve There is no pulmonic regurgitation. Mitral Valve There is no mitral valve stenosis. There is mild mitral valve regurgitation. Tricuspid Valve There is no tricuspid valve regurgitation. No pulmonary hypertension, estimated pulmonary arterial systolic pressure is 17 mmHg. Pericardium/Pleural There is no pericardial effusion. Inferior Vena Cava Normal inferior vena cava with >50% collapse upon inspiration consistent with normal right atrial pressure, 5 mmHg. Aorta The aortic root size at the sinus of Valsalva is normal. Discharge Plan Discharge Attending physician on discharge: Duran Li Consulting providers: Jabier Grimm Discharging Clinician: Duran Li Anticipated Discharge Date/Time: 12/07/24 09:00 Patient Disposition: Home, Self-Care Activity: as tolerated Diet: heart healthy Patient Instructions: Antibiotic Form, Safe Use of Anticoagulants (GEN) Patient Language: Armenian Stand Alone Forms: General Discharge Information Follow-up/Referrals: Marcy,Hossein Bowens MD [Primary Care Provider] - 1 Week Jabier Grimm MD [Physician] - 2 Weeks Discharge Medications: New colchicine [Colcrys] 0.6 mg Tablet 0.6 mg PO Q12HR Qty: 60 0RF rosuvastatin 20 mg Tablet 20 mg PO QAM Qty: 30 0RF ibuprofen 800 mg tablet 800 mg PO TID Qty: 15 0RF Continued gabapentin 300 mg capsule 300 mg PO DAILY levothyroxine 125 mcg tablet 125 mcg PO DAILY aspirin 81 mg Tablet 81 mg PO DAILY levetiracetam [Keppra] 500 mg Tablet 500 mg PO Q12HR Qty: 60 3RF Date of admission: 12/05/24 12:07 Primary Care Provider: Marcy,Hossein Bowens Admitting Provider: Ruy Olivera Attending physician on admission: Ruy Olivera Condition: Improved
== END 2024-12-07 11:16 | disposition home or self-care (01) | DRG 287 ==
LOC: ANHED 19:33 → ANHIMU 21:37 → ANHICU 12-09 15:59 → ANHIMU 12-09 15:59
PROVIDERS: Emergency Medicine; Internal Medicine Interventional Cardiology; Nurse Practitioner; Admitting Provider Internal Medicine; Emergency Provider Emergency Medicine; PCP Internal Medicine; Visit Provider Internal Medicine
PROC: 4A023N7 Measurement of Cardiac Sampling and Pressure, Left Heart, Percutaneous Approach (ICD-10-PCS; CPT 93452; principal; 2024-12-05 14:00)
DX: I25.110 Atherosclerotic heart disease of native coronary artery with unstable angina pectoris (principal); I31.9 Disease of pericardium, unspecified; I95.9 Hypotension, unspecified; I09.89 Other specified rheumatic heart diseases; R01.1 Cardiac murmur, unspecified; E87.6 Hypokalemia; E03.9 Hypothyroidism, unspecified; E78.5 Hyperlipidemia, unspecified; M54.9 Dorsalgia, unspecified; G89.29 Other chronic pain; G40.909 Epilepsy, unspecified, not intractable, without status epilepticus; Q85.00 Neurofibromatosis, unspecified; I25.2 Old myocardial infarction; Z79.82 Long term (current) use of aspirin
CPT/HCPCS: 36415; 71045; 71275; 80053; 80061; 83036; 83690; 83735; 84484; 85025; 85610; 85652; 85730; 93005; 93458; 96374; 96375; 99285; A9270; C1769; C1887; C1894; C8929; G0378; J1644; J1650; J2003; J2250; J2270; J2305; J2405; J3010; J7030; J7040; Q9957; Q9967